=== PATIENT | female | born 1960 | race Asian ===

== ENCOUNTER 2017-11-06 06:10 | Day surgery (SDC) | payer OTHER ==
[2017-11-06] MEDS ORDERED: LACTATED RINGERS 500 ML IV ONE (06:34)
[2017-11-06] MEDS ORDERED: PHENYLEPHRINE 2.5% OPHTH 2 ML DROPS ONE (06:40)
[2017-11-06] MEDS ORDERED: KETOROLAC 0.45% OPHTH DROPS ONE (06:40)
[2017-11-06] MEDS ORDERED: CYCLOPENTOLATE 1% OPHTH DROPS 2 ML ONE (06:40)
[2017-11-06] MEDS ORDERED: PROPARACAINE 0.5% OPHTH DROPS 15 ML ONE ×2 (06:40→07:22)
[2017-11-06] MEDS ORDERED: TIMOLOL 0.5% OPHTH DROPS ONE ×3 (07:21→07:37)
[2017-11-06] MEDS ORDERED: BRIMONIDINE 0.2% OPHTH DROPS 5 ML ONE ×3 (07:21→07:37)
[2017-11-06] MEDS ORDERED: BSS/LIDOCAINE/EPINEPHRINE 1 ML SYRINGE ONE (07:22)
[2017-11-06] MEDS ORDERED: EPINEPHrine 1 MG/ML AMP ONE (07:27)
[2017-11-06] MEDS ORDERED: VANCOMYCIN 1 GM VIAL ONE (07:36)
[2017-11-06] MEDS ORDERED: MIDAZOLAM 2 MG/2 ML VIAL IVP ONE (07:41)
[2017-11-06] MEDS ORDERED: EPINEPHrine 1 MG/ML AMP IVP ONE (07:43)
[2017-11-06] MEDS ORDERED: BRIMONIDINE 0.2% OPHTH DROPS 5 ML OPTH ONE (07:43)
[2017-11-06] MEDS ORDERED: TRIAMCIN/MOXIFLOX/VANCO 1 ML VIAL IO ONE ×2 (07:44)
[2017-11-06] MEDS ORDERED: TIMOLOL 0.5% OPHTH DROPS OPTH ONE (07:44)
[2017-11-06] MEDS ORDERED: CHONDR SULF/HYALURONATE SYRINGE IO ONE (07:44)
[2017-11-06] MEDS ORDERED: BSS/LIDOCAINE/EPINEPHRINE 1 ML SYRINGE IO ONE (07:44)
[2017-11-06] MEDS ORDERED: PROPARACAINE 0.5% OPHTH DROPS 15 ML LEFTEYE ONE (07:45)
[2017-11-06 08:11] VITALS: BP 133/88
--- NOTE | 2017-11-06 08:23 | OPERATIVE REPORT ---
DATE OF SERVICE: 11/06/2017 Physician: Ceasar Nelson MD PREOPERATIVE DIAGNOSIS: Visually significant cataract, left eye. This was her first cataract surgery. POSTOPERATIVE DIAGNOSIS: Visually significant cataract, left eye. This was her first cataract surgery. NAME OF PROCEDURE: Phacoemulsification with posterior chamber intraocular lens implant, left eye. SURGEON: Ceasar Nelson M.D. ANESTHESIA: Monitored anesthesia care. COMPLICATIONS: None. OPERATIVE INDICATIONS: This is a 57-year-old woman with progressive vision loss in the left eye due to 2+ nuclear sclerotic and 2+ cortical cataract. Best corrected visual acuity was 20/80 with glare to count fingers at 2 feet in the left eye. Indications for surgery for overall decrease in vision, difficulty seeing words on a computer screen, difficulty reading; difficulty driving at night because of headlights from other vehicles, and difficulty with glare and bright lights in any situation. She was consented at length concerning the risks and benefits of cataract surgery, after which she expressed a desire to proceed with surgery. OPERATIVE PROCEDURE: The patient was taken to OR #3 and placed under monitored anesthesia care. A surgical timeout was conducted confirming the correct patient, correct procedure, and correct surgical site. She was brought under the operating microscope and given topical anesthesia and prepped and draped in usual sterile fashion. The eye was entered at the 6 and 3 o'clock positions. Intracameral Shugarcaine was injected into the anterior chamber, followed by Viscoat. A capsulorrhexis flap was created with a cystotome followed by Masket forceps. The nucleus was hydrodissected and phacoemulsified. The cortex was evacuated using automated infusion and aspiration. Provisc was injected in the capsular bag, and a 23.0 diopter intraocular lens was inserted in the bag. Approximately 0.7 mL of a mixture of triamcinolone and moxifloxacin was injected subconjunctivally in the superior quadrant. An additional 0.7 mL of vancomycin was also injected subconjunctivally in the superior quadrant for infection and inflammation prophylaxis. I and A was used to evacuate the viscoelastic material. The eye was inflated to physiologic pressure using balanced salt solution and found to be watertight. The patient was taken from the operating room in good condition and given postop instructions. TD: 11/06/2017 08:09
== END 2017-11-06 06:11 | disposition home or self-care (01) ==
LOC: SDS 06:10
PROVIDERS: ATTEND Ophthalmology
PROC: 08RK3JZ Replacement of Left Lens with Synthetic Substitute, Percutaneous Approach (ICD-10-PCS; principal; 2017-11-06 07:30)
DX: H25.812 Combined forms of age-related cataract, left eye (principal); I10 Essential (primary) hypertension; E11.9 Type 2 diabetes mellitus without complications; M32.9 Systemic lupus erythematosus, unspecified; Z79.82 Long term (current) use of aspirin; Z79.84 Long term (current) use of oral hypoglycemic drugs
CPT/HCPCS: 66984; A9270; J3370; J3490; V2632

== ENCOUNTER 2018-01-22 08:30 | Day surgery (SDC) | payer OTHER ==
[~2018-01-22 08:30] MED LIST: BSS/LIDOCAINE/EPINEPHRINE 1 ML SYRINGE ONE; CYCLOPENTOLATE 1% OPHTH DROPS 2 ML ONE; EPINEPHrine 1 MG/ML AMP ONE; KETOROLAC 0.45% OPHTH DROPS ONE; PHENYLEPHRINE 2.5% OPHTH 2 ML DROPS ONE; PROPARACAINE 0.5% OPHTH DROPS 15 ML ONE; TRIAMCIN/MOXIFLOX OPHTHALMIC 0.6 ML VIAL IO ONE; VANCOMYCIN OPHTHALMI 8MG/0.8ML 8 MG/0.8 ML SYRINGE IO ONE
--- NOTE | 2018-01-22 08:48 | ANESTHESIA ---
Pre-Anesthesia VS, & Labs - Diagnosis senile combined cataract, right - Procedure Right cataract extraction with intraocular lens implant Vital Signs: Temp Pulse Resp BP Pulse Ox 36.5 C 16 153/80 H 100 01/22/18 08:39 01/22/18 08:39 01/22/18 08:39 01/22/18 08:39 Height 5 ft 4 in Weight (kg) 86.3 kg - NPO >8 hours - Is Patient ?: No - Lab Results Other Lab Results: bg 146 Home Medications and Allergies Home Medications: Ambulatory Orders Medication Instructions Recorded Confirmed Aspirin 81 mg PO DAILY 11/06/17 11/06/17 Atorvastatin [Lipitor] 10 mg PO DAILY 11/06/17 11/06/17 Lisinopril 10 mg PO DAILY 11/06/17 11/06/17 Metformin HCl 1,000 mg PO BID 11/06/17 11/06/17 Allergies/Adverse Reactions: Allergies Allergy/AdvReac Type Severity Reaction Status Date / Time atenolol AdvReac Rash Verified 11/06/17 06:44 Anes History & Medical History - Anesthetic History Anesthesia Complications: reports: No previous complications - Medical History Cardiovascular: reports: Hypertension, High cholesterol Pulmonary: reports: None Gastrointestinal: reports: None Urinary: reports: None Musculoskeletal: reports: Fibromyalgia Endocrine/Autoimmune: reports: Type 2 diabetes Skin: reports: None - Surgical History General: Colonoscopy Eyes Ears Nose Throat (EENT): Cataracts Exam General: Alert Dental: WNL Mouth Openin Fingerbreadth Mallampati classification: II Respiratory: Lungs clear Cardiovascular: Regular rate Mental/Cognitive Status: Alert/Oriented X3 Cognitive Status: Within normal limits Plan Anesthesia Type: MAC Consent for Procedure(s) Verified and Reviewed: No Code Status: Attempt Resuscitation ASA classification: 2-Mild systemic disease Is this case an emergency?: No
[2018-01-22] MEDS ORDERED: PROPARACAINE 0.5% OPHTH DROPS 15 ML RIGHTEYE ONE ×2 (08:50→09:33)
[2018-01-22] MEDS ORDERED: CYCLOPENTOLATE 1% OPHTH DROPS 2 ML RIGHTEYE ONE (08:50)
[2018-01-22] MEDS ORDERED: KETOROLAC 0.45% OPHTH DROPS RIGHTEYE ONE (08:50)
[2018-01-22] MEDS ORDERED: PHENYLEPHRINE 2.5% OPHTH 2 ML DROPS RIGHTEYE ONE (08:50)
[2018-01-22] MEDS ORDERED: LACTATED RINGERS 500 ML IV ONE (08:57)
[2018-01-22] MEDS ORDERED: EPINEPHrine 1 MG/ML AMP IVP ONE (09:32)
[2018-01-22] MEDS ORDERED: BRIMONIDINE 0.2% OPHTH DROPS 5 ML OPTH ONE (09:32)
[2018-01-22] MEDS ORDERED: BSS/LIDOCAINE/EPINEPHRINE 1 ML SYRINGE IO ONE (09:32)
[2018-01-22] MEDS ORDERED: CHONDR SULF/HYALURONATE SYRINGE IO ONE (09:32)
[2018-01-22] MEDS ORDERED: TIMOLOL 0.5% OPHTH DROPS OPTH ONE (09:32)
[2018-01-22] MEDS ORDERED: TRIAMCIN/MOXIFLOX/VANCO 1 ML VIAL IO ONE (09:33)
[2018-01-22] MEDS ORDERED: MIDAZOLAM 2 MG/2 ML VIAL IVP ONE (09:33)
[2018-01-22 09:56] VITALS: BP 134/68
--- NOTE | 2018-01-22 10:22 | OPERATIVE REPORT ---
DATE OF SERVICE: 01/22/2018 Physician: Ceasar Nelson MD PREOPERATIVE DIAGNOSIS: Visually significant cataract, right eye. Cataract surgery was performed on the left eye on 11/06/2017. POSTOPERATIVE DIAGNOSIS: Visually significant cataract, right eye. Cataract surgery was performed on the left eye on 11/06/2017. PROCEDURE: Phacoemulsification with posterior chamber intraocular lens implant , right eye. SURGEON: Ceasar Nelson MD ANESTHESIA: Monitored anesthesia care. COMPLICATIONS: None. OPERATIVE INDICATIONS: This is a 57-year-old woman with progressive vision loss in the right eye due to 2+ nuclear sclerotic and 2+ cortical cataract. Best corrected visual acuity was 20/25, with glare to count fingers at 4 feet in the right eye. Indications for surgery were difficulty seeing words on a computer screen, difficulty reading; difficulty seeing words, closed caption or game scores on TV and difficulty driving at night because of headlights from other vehicles and /or street lights. She was consented at length concerning risks and benefits of cataract surgery, after which she expresses a desire to proceed with surgery. OPERATIVE PROCEDURE: The patient was taken to OR #3 and placed under monitored anesthesia care. A surgical timeout was conducted confirming correct patient, correct procedure, and correct surgical site. She was given topical anesthesia , and then prepped and draped in the usual sterile fashion. The eye was entered at the 12 and 9 o'clock positions. Intracameral Shugarcaine was injected into the anterior chamber, followed by Viscoat. A continuous-tear curvilinear capsulorrhexis was performed. Nucleus was hydrodissected and phacoemulsified. Cortex was evacuated using automated infusion and aspiration. Provisc was injected in the capsular bag, and a 23.0 diopter intraocular lens was inserted in the bag. Approximately 0.8 mL of a mixture of triamcinolone, moxifloxacin, and vancomycin was injected subconjunctivally in the superior quadrant for infection and inflammation prophylaxis. I and A was used to evacuate the viscoelastic materials. The eye was inflated to physiologic pressure using balanced salt solution, and found to be watertight. The patient was taken from the operating room in good condition, and given postop instructions. TD: 01/22/2018 09:56 [facility]
== END 2018-01-22 08:31 | disposition home or self-care (01) ==
LOC: SDS 08:30
PROVIDERS: ATTEND Ophthalmology
PROC: 08RJ3JZ Replacement of Right Lens with Synthetic Substitute, Percutaneous Approach (ICD-10-PCS; principal; 2018-01-22 09:30)
DX: H25.811 Combined forms of age-related cataract, right eye (principal); I10 Essential (primary) hypertension; E11.9 Type 2 diabetes mellitus without complications
CPT/HCPCS: 66984; A9270; J3490; V2632

== ENCOUNTER 2022-11-12 05:24 | Outpatient (CLI) | payer OTHER | END 2022-11-12 23:59 | disposition short-term general hospital (02) | LOC: EMS 05:24 | DX: R53.1 Weakness (principal); R07.9 Chest pain, unspecified; I95.9 Hypotension, unspecified; I48.91 Unspecified atrial fibrillation | CPT/HCPCS: A0425; A0427 ==

== ENCOUNTER 2024-01-02 10:59 | Outpatient (CLI) | payer MEDICARE, OTHER ==
--- NOTE | 2024-01-02 14:58 | XRAY Report ---
PROCEDURE: Chest 2V INDICATIONS: ACUTE COUGH TECHNIQUE: 2 views of the chest were acquired. COMPARISON: None. FINDINGS: Surgical changes and devices: None. Lungs and pleura: No pleural effusions or pneumothorax. Lungs are clear. Mediastinum: The cardiac silhouette appears enlarged. Marked tortuosity of the aortic aorta is noted . Bones and chest wall: No suspicious bony lesions. Overlying soft tissues appear unremarkable. IMPRESSION: Enlarged cardiac silhouette and markedly tortuous thoracic aorta. Clear lungs Reviewed by: Benny Parra MD on 01/02/2024 2:57 PM PDT Approved by: Benny Parra MD on 01/02/2024 2:57 PM PDT Station ID: [id number]
== END 2024-01-02 11:00 | disposition home or self-care (01) ==
LOC: DI.N 10:59
PROVIDERS: ATTEND Physician Assistant Medical
DX: R05.1 Acute cough (principal); Q25.46 Tortuous aortic arch; R41.82 Altered mental status, unspecified
CPT/HCPCS: 36415; 80053; 85025

== ENCOUNTER 2024-01-02 13:09 | Outpatient (CLI) | payer MEDICARE, OTHER ==
[2024-01-02 17:53] LABS: BASOPHILS # (AUTO) 0.1 10^3/uL (0.0-0.1); BASOPHILS % (AUTO) 1.6 %; EOSINOPHILS % (AUTO) 0.2 %; HGB - HEMOGLOBIN 10.7 g/dL (12.0-16.0); LYMPHOCYTES # (AUTO) 1.9 10^3/uL (1.5-3.5); LYMPHOCYTES % (AUTO) 33.6 %; MEAN CORPUSCULAR HEMOGLOBIN 28.1 pg (27.0-31.0); MEAN CORPUSCULAR HGB CONC 31.5 g/dL (32.0-36.0); MEAN CORPUSCULAR VOLUME 89.2 fL (81.0-99.0); MEAN PLATELET VOLUME 11.8 fL (7.9-10.8); MONOCYTES # (AUTO) 1.2 10^3/uL (0.0-1.0); MONOCYTES % (AUTO) 21.4 %; NEUTROPHILS # (AUTO) 2.4 10^3/uL (1.5-6.6); NEUTROPHILS % (AUTO) 41.8 %; PLT - PLATELET COUNT 111 10^3/uL (130-450); RED BLOOD COUNT 3.81 10^6/uL (4.20-5.40); RED CELL DISTRIBUTION WIDTH 14.3 % (12.0-15.0); WHITE BLOOD COUNT 5.7 x10^3/uL (4.8-10.8)
[2024-01-02 19:22] LABS: ALBUMIN 3.1 g/dL (3.2-5.5); ALBUMIN/GLOBULIN RATIO 0.7 (1.0-2.2); BILIRUBIN,TOTAL 1.7 mg/dL (0.2-1.0); CREATININE 0.9 mg/dL (0.6-1.3); POTASSIUM 4.1 mmol/L (3.5-4.5); TOTAL PROTEIN 7.4 g/dL (6.4-8.9)
== END 2024-01-02 13:10 | disposition home or self-care (01) ==
LOC: LAB.N 13:09
PROVIDERS: ATTEND Physician Assistant Medical
DX: R41.82 Altered mental status, unspecified (principal)
CPT/HCPCS: 36415; 80053; 85025

== ENCOUNTER 2024-01-14 08:00 | Outpatient (CLI) | payer MEDICARE, OTHER ==
[2024-01-14 20:34] LABS: FECAL OCCULT BLOOD (FIT) NEGATIVE (NEGATIVE)
== END 2024-01-14 23:59 | disposition home or self-care (01) ==
LOC: LAB.N 08:00
PROVIDERS: ATTEND Physician Assistant
DX: Z12.11 Encounter for screening for malignant neoplasm of colon (principal)
CPT/HCPCS: 82274

== ENCOUNTER 2024-02-02 07:45 | Outpatient (CLI) | payer MEDICARE, OTHER ==
[2024-02-02 13:05] LABS: BILIRUBIN,URINE NEGATIVE (NEGATIVE); GLUCOSE, URINE (UA) NEGATIVE (NEGATIVE); KETONES,URINE (UA) 15 mg/dL (NEGATIVE); LEUKOCYTE ESTERASE, URINE NEGATIVE (NEGATIVE); NITRITE,URINE NEGATIVE (NEGATIVE); OCCULT BLOOD,URINE NEGATIVE (NEGATIVE); PROTEIN,URINE NEGATIVE (NEGATIVE); UROBILINOGEN,URINE 0.2 (NORMAL) E.U./dL (NORMAL)
[2024-02-02 13:11] LABS: CLARITY,URINE CLEAR (CLEAR)
[2024-02-02 14:10] LABS: ALBUMIN 2.9 g/dL (3.2-5.5); ALBUMIN/GLOBULIN RATIO 0.6 (1.0-2.2); ALKALINE PHOSPHATASE 70 IU/L (42-121); ALT ALANINE AMINOTRANSFERASE 25 IU/L (10-60); AST ASPARTATE AMINOTRANSFERASE 42 IU/L (10-42); BUN - BLOOD UREA NITROGEN 18 mg/dL (6-20); CARBON DIOXIDE - CO2 22 mmol/L (21-32); CHLORIDE 109 mmol/L (101-111); CREATININE 1.4 mg/dL (0.6-1.3); CRP - C-REACTIVE PROTEIN < 0.5 mg/dL (<0.5); GFR - MDRD 38 (>89); GLUCOSE 107 mg/dL (74-104); POTASSIUM 4.4 mmol/L (3.5-4.5); SODIUM 137 mmol/L (135-145); TOTAL PROTEIN 7.4 g/dL (6.4-8.9)
[2024-02-02 14:15] LABS: CHOL/HDL RATIO 3.1 (<4.4); CHOLESTEROL 162 mg/dL; HDL CHOLESTEROL 53 mg/dL; LDL CHOLESTEROL,CALCULATED 97 mg/dL; LDL/HDL RATIO 1.8 (<4.4); TRIGLYCERIDES 62 mg/dL; VLDL CHOLESTEROL 12 mg/dL
[2024-02-02 14:35] LABS: BASOPHILS # (AUTO) 0.1 10^3/uL (0.0-0.1); BASOPHILS % (AUTO) 1.1 %; EOSINOPHILS # (AUTO) 0.6 10^3/uL (0.0-0.7); EOSINOPHILS % (AUTO) 11.2 %; HCT - HEMATOCRIT 31.8 % (37.0-47.0); HGB - HEMOGLOBIN 10.4 g/dL (12.0-16.0); LYMPHOCYTES # (AUTO) 1.6 10^3/uL (1.5-3.5); LYMPHOCYTES % (AUTO) 28.6 %; MEAN CORPUSCULAR HEMOGLOBIN 28.3 pg (27.0-31.0); MEAN CORPUSCULAR HGB CONC 32.7 g/dL (32.0-36.0); MEAN CORPUSCULAR VOLUME 86.6 fL (81.0-99.0); MEAN PLATELET VOLUME 11.8 fL (7.9-10.8); MONOCYTES # (AUTO) 1.1 10^3/uL (0.0-1.0); MONOCYTES % (AUTO) 20.5 %; NEUTROPHILS # (AUTO) 2.1 10^3/uL (1.5-6.6); NEUTROPHILS % (AUTO) 38.1 %; PLT - PLATELET COUNT 148 10^3/uL (130-450); RED BLOOD COUNT 3.67 10^6/uL (4.20-5.40); RED CELL DISTRIBUTION WIDTH 15.2 % (12.0-15.0); WHITE BLOOD COUNT 5.6 x10^3/uL (4.8-10.8)
[2024-02-02 14:44] LABS: WBC,URINE 0-3 /HPF (0-5)
[2024-02-02 14:45] LABS: BACTERIA,URINE Few /HPF (None Seen); RBC,URINE 0-5 /HPF (0-5); SQUAMOUS EPITHELIAL CELL,UR MOD Squamous (<= Few)
[2024-02-02 14:46] LABS: THYROID STIMULATING HORMONE 12.98 uIU/mL (0.34-5.60)
[2024-02-02 14:54] LABS: FERRITIN 104.6 ng/mL (11.0-306.8)
[2024-02-02 22:40] LABS: ESTIMATED AVERAGE GLUCOSE 100 mg/dL (70-100); HEMOGLOBIN A1c% 5.1 % (4.27-6.07)
[2024-02-03 04:09] LABS: COMPLEMENT C3 80 mg/dL (82-167); COMPLEMENT C4 9 mg/dL (12-38)
== END 2024-02-02 07:46 | disposition home or self-care (01) ==
LOC: LAB.N 07:45
PROVIDERS: ATTEND Physician Assistant
DX: R73.01 Impaired fasting glucose (principal); I50.9 Heart failure, unspecified; D64.9 Anemia, unspecified; R41.82 Altered mental status, unspecified; M25.50 Pain in unspecified joint; R76.8 Other specified abnormal immunological findings in serum; K74.69 Other cirrhosis of liver; R18.8 Other ascites
CPT/HCPCS: 36415; 80053; 80061; 81001; 82607; 82728; 82746; 83036; 83721; 84439; 84443; 85025; 85651; 86038; 86140; 86160

== ENCOUNTER 2024-02-22 00:58 | Outpatient (CLI) | payer MEDICARE, OTHER | END 2024-02-22 23:59 | disposition critical access hospital (66) | LOC: EMS 00:58 | DX: R41.82 Altered mental status, unspecified (principal); S09.93XA Unspecified injury of face, initial encounter; W19.XXXA Unspecified fall, initial encounter; Y92.002 Bathroom of unspecified non-institutional (private) residence as the place of occurrence of the external cause | CPT/HCPCS: A0425; A0429 ==

== ENCOUNTER 2024-02-22 01:13 | Emergency (ER) | payer MEDICARE, OTHER ==
--- NOTE | 2024-02-22 01:35 | ED Physician Documentation ---
PD HPI ALTERED MENTAL STATUS - Stated complaint Stated Complaint: FALL/AMS - Chief complaint Chief Complaint: Neuro - History obtained from History obtained from: Family, EMS - Additional information Additional information: PLACIDOA. HPI from EMS and patient's niece. Patient is obtunded and thus cannot contribute to HPI/ROS. Patient's niece says that the patient's baseline mental status is AAO x 3. She says that the patient and other family members just returned from a trip to [place] earlier today and that since earlier this evening, patient has been gradually exhibiting AMS manifest as slow to answer, seeming confused. She also appeared to have unsteady gait this evening. Tonight, patient fell at home. Niece did not witness the fall but immediately checked on patient and found her on the bathroom floor minimally responsive. There was no seizure-like activity noted. 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 She was released the following day after receiving lactulose and returned to baseline mental status. Review of Systems Unable to obtain: Unresponsive PD PAST MEDICAL HISTORY - Past Medical History Cardiovascular: Hypertension, High cholesterol Respiratory: None Endocrine/Autoimmune: Type 2 diabetes GI: None : None HEENT: None Psych: None Musculoskeletal: Fibromyalgia Derm: None - Past Surgical History General: Colonoscopy HEENT: Cataracts - Present Medications Home Medications: Ambulatory Orders Medication Instructions Recorded Confirmed Aspirin 81 mg PO DAILY 11/06/17 02/22/24 Furosemide [Lasix] 20 mg PO DAILY 02/22/24 02/22/24 Lactulose 20 gm PO BID 02/22/24 02/22/24 Losartan Potassium 25 mg PO DAILY 02/22/24 02/22/24 Pantoprazole [Protonix] 40 mg PO BID 02/22/24 02/22/24 Potassium Chloride 20 meq PO BID 02/22/24 02/22/24 Spironolactone [Aldactone] 25 mg PO DAILY 02/22/24 02/22/24 dilTIAZem HCL [Diltiazem 12Hr ER] 120 mg PO DAILY 02/22/24 02/22/24 - Allergies Allergies/Adverse Reactions: Allergies Allergy/AdvReac Type Severity Reaction Status Date / Time atenolol AdvReac Rash Verified 02/22/24 01:28 - Social History Does the pt smoke?: No Smoking Status: Never smoker Does the pt drink ETOH?: No Does the pt have substance abuse?: No PD ED PE NORMAL - Vitals Vital signs reviewed: Yes - General General: Other (obese female with sonorous respirations, nonverbal and not following commands. ) - HEENT HEENT: Atraumatic, PERRL - Cardiac Cardiac: RRR, No murmur - Abdomen Abdomen: Soft, Non tender, Non distended PD ED PE EXPANDED - Respiratory Respiratory: Wheezing (trace end-expiratory wheezing), Decreased breath sounds - Extremities Extremities: Pedal edema bilateral, Other (anasarca) Results - Vitals Vitals: Vital Signs - 24 hr 02/22/24 02/22/24 02/22/24 01:15 02:06 02:13 Temperature 36.6 C Heart Rate 86 92 83 Respiratory 21 20 16 Rate Blood Pressure 134/74 H 109/89 H O2 Saturation 100 92 02/22/24 02/22/24 02/22/24 02:30 03:00 03:30 Temperature Heart Rate 84 84 84 Respiratory 18 19 14 Rate Blood Pressure 138/72 H 126/62 128/59 L O2 Saturation 99 97 97 02/22/24 02/22/24 02/22/24 04:00 04:30 05:00 Temperature Heart Rate 84 85 84 Respiratory 17 20 18 Rate Blood Pressure 118/60 123/55 L 125/54 L O2 Saturation 97 97 97 02/22/24 02/22/24 02/22/24 05:30 06:00 06:30 Temperature Heart Rate 84 87 82 Respiratory 17 19 17 Rate Blood Pressure 116/57 L 109/70 117/56 L O2 Saturation 97 98 99 02/22/24 02/22/24 02/22/24 07:00 07:30 08:00 Temperature 37 C Heart Rate 91 89 87 Respiratory 21 18 17 Rate Blood Pressure 146/63 H 136/65 H 134/68 H O2 Saturation 97 99 100 02/22/24 08:30 Temperature Heart Rate 78 Respiratory 16 Rate Blood Pressure 119/81 H O2 Saturation 100 Oxygen O2 Source Room air - Labs Labs: Microbiology 02/22/24 08:05 Occult Blood - Final Stool Laboratory Tests 02/22/24 02/22/24 02/22/24 01:15 01:40 01:40 WBC 5.8 RBC 3.42 L Hgb 9.6 L Hct 29.9 L MCV 87.4 MCH 28.1 MCHC 32.1 RDW 15.8 H Plt Count 115 L MPV 11.9 H Neut # (Auto) 2.5 Lymph # (Auto) 1.5 [place] # (Auto) 1.2 H Eos # (Auto) 0.5 Baso # (Auto) 0.1 Absolute Nucleated RBC 0.02 Nucleated RBC % 0.3 PT 14.1 H INR 1.3 H APTT 35.9 H Sodium Potassium Chloride Carbon Dioxide Anion Gap BUN Creatinine Estimated GFR (MDRD) Glucose Lactic Acid Calcium Magnesium Total Bilirubin AST ALT Alkaline Phosphatase Ammonia Troponin I High Sens B-Natriuretic Peptide Total Protein Albumin Globulin Albumin/Globulin Ratio Lipase Urine Color YELLOW Urine Clarity CLEAR Urine pH 6.0 Ur Specific [place] >=1.030 H Urine Protein TRACE Urine Glucose (UA) NEGATIVE Urine Ketones NEGATIVE Urine Occult Blood NEGATIVE Urine Nitrite NEGATIVE Urine Bilirubin NEGATIVE Urine Urobilinogen 1 (NORMAL) Ur Leukocyte Esterase NEGATIVE Ur Microscopic Review NOT INDICATED Urine Culture Comments NOT INDICATED Ethyl Alcohol 02/22/24 02/22/24 02/22/24 01:40 01:40 01:40 WBC RBC Hgb Hct MCV MCH MCHC RDW Plt Count MPV Neut # (Auto) Lymph # (Auto) [place] # (Auto) Eos # (Auto) Baso # (Auto) Absolute Nucleated RBC Nucleated RBC % PT INR APTT Sodium 137 Potassium 5.3 H Chloride 110 Carbon Dioxide 20 L Anion Gap 7.0 BUN 26 H Creatinine 1.9 H Estimated GFR (MDRD) 27 L Glucose 129 H Lactic Acid Calcium 8.9 Magnesium Total Bilirubin 2.1 H AST 35 ALT 23 Alkaline Phosphatase 74 Ammonia Troponin I High Sens 16.9 H* B-Natriuretic Peptide 348 H Total Protein 7.2 Albumin 3.0 L Globulin 4.2 Albumin/Globulin Ratio 0.7 L Lipase 107 H Urine Color Urine Clarity Urine pH Ur Specific [place] Urine Protein Urine Glucose (UA) Urine Ketones Urine Occult Blood Urine Nitrite Urine Bilirubin Urine Urobilinogen Ur Leukocyte Esterase Ur Microscopic Review Urine Culture Comments Ethyl Alcohol < 10.0 02/22/24 02/22/24 02/22/24 01:55 01:55 07:59 WBC RBC Hgb Hct MCV MCH MCHC RDW Plt Count MPV Neut # (Auto) Lymph # (Auto) [place] # (Auto) Eos # (Auto) Baso # (Auto) Absolute Nucleated RBC Nucleated RBC % PT INR APTT Sodium 136 Potassium 5.3 H Chloride 110 Carbon Dioxide 18 L Anion Gap 8.0 BUN 26 H Creatinine 1.9 H Estimated GFR (MDRD) 27 L Glucose 120 H Lactic Acid 1.7 Calcium 8.9 Magnesium 2.0 Total Bilirubin 2.3 H AST 37 ALT 23 Alkaline Phosphatase 69 Ammonia 259.2 H* Troponin I High Sens B-Natriuretic Peptide Total Protein 7.1 Albumin 3.0 L Globulin 4.1 Albumin/Globulin Ratio 0.7 L Lipase 101 H Urine Color Urine Clarity Urine pH Ur Specific [place] Urine Protein Urine Glucose (UA) Urine Ketones Urine Occult Blood Urine Nitrite Urine Bilirubin Urine Urobilinogen Ur Leukocyte Esterase Ur Microscopic Review Urine Culture Comments Ethyl Alcohol 02/22/24 02/22/24 07:59 07:59 WBC RBC Hgb 9.6 L Hct 28.5 L MCV MCH MCHC RDW Plt Count MPV Neut # (Auto) Lymph # (Auto) [place] # (Auto) Eos # (Auto) Baso # (Auto) Absolute Nucleated RBC Nucleated RBC % PT INR APTT Sodium Potassium Chloride Carbon Dioxide Anion Gap BUN Creatinine Estimated GFR (MDRD) Glucose Lactic Acid Calcium Magnesium Total Bilirubin AST ALT Alkaline Phosphatase Ammonia 153.5 H* Troponin I High Sens B-Natriuretic Peptide Total Protein Albumin Globulin Albumin/Globulin Ratio Lipase Urine Color Urine Clarity Urine pH Ur Specific [place] Urine Protein Urine Glucose (UA) Urine Ketones Urine Occult Blood Urine Nitrite Urine Bilirubin Urine Urobilinogen Ur Leukocyte Esterase Ur Microscopic Review Urine Culture Comments Ethyl Alcohol - Rads (name of study) CTH Relevant Findings:: Prelim report reviewed, See rad report PD Medical Decision Making - ED course Complexity details: reviewed old records, reviewed results, re-evaluated patient, considered differential, d/w family ED course: Records from patient's inpatient stay at [facility] were requested, faxed to [facility] ED and reviewed by me. These notes indicate patient was kept overnight after extensive workup including CTA of the head and neck As well as CT of the chest, abdomen and pelvis. Within the discharge summary is included "CT imaging did not show a splenorenal shunt, but given her encephalopathy was not refractory this can be discussed with her GI provider in the outpatient setting. Her home diuretics were cut in half at discharge, and 20 mg of lactulose was prescribed twice daily, though the patient was instructed to titrate dosing to 2-4 bowel movements per day." Through the Epic record system, I was also able to find notes from the patient's nursing care partner (Dr. Lucsa out of [place]). Included in these notes are note of "large varices and moderate portal hypertensive gastropathy. Stomach biopsy shows mild chronic gastritis, no H. pylori." These notes also include "the leading etiology of cirrhosis is MASH, as her serological workup did not reveal any underlying etiology and there is no alcohol history. Her main issue at this point is fluid overload." I discussed this case with Dr. Calvo (GI covering for Dr. Lucas). He recommends lactulose enema. He agrees patient would be appropriate for transfer to higher level of care. Unfortunately, no beds available at [facility]. [facility] may have beds but will not know until later this morning. The lactulose enemas ordered and being given as my shift is coming to an end, and thus care of this patient is turned over to the oncoming ED physician (Dr. Guzman). Departure - Departure Forms: PCP List
[2024-02-22 01:53] LABS: BASOPHILS # (AUTO) 0.1 10^3/uL (0.0-0.1); BASOPHILS % (AUTO) 0.9 %; EOSINOPHILS # (AUTO) 0.5 10^3/uL (0.0-0.7); EOSINOPHILS % (AUTO) 8.3 %; HCT - HEMATOCRIT 29.9 % (37.0-47.0); HGB - HEMOGLOBIN 9.6 g/dL (12.0-16.0); LYMPHOCYTES # (AUTO) 1.5 10^3/uL (1.5-3.5); LYMPHOCYTES % (AUTO) 26.3 %; MEAN CORPUSCULAR HEMOGLOBIN 28.1 pg (27.0-31.0); MEAN CORPUSCULAR HGB CONC 32.1 g/dL (32.0-36.0); MEAN CORPUSCULAR VOLUME 87.4 fL (81.0-99.0); MEAN PLATELET VOLUME 11.9 fL (7.9-10.8); MONOCYTES # (AUTO) 1.2 10^3/uL (0.0-1.0); MONOCYTES % (AUTO) 20.1 %; NEUTROPHILS # (AUTO) 2.5 10^3/uL (1.5-6.6); NEUTROPHILS % (AUTO) 43.5 %; NRBC ABSOLUTE COUNT (AUTO) 0.02 x10^3/uL; NUCLEATED RED BLOOD CELLS AUTO 0.3 /100WBC; PLT - PLATELET COUNT 115 10^3/uL (130-450); RED BLOOD COUNT 3.42 10^6/uL (4.20-5.40); RED CELL DISTRIBUTION WIDTH 15.8 % (12.0-15.0); WHITE BLOOD COUNT 5.8 x10^3/uL (4.8-10.8)
[2024-02-22] MEDS: IPRATROPIUM/ALBUTEROL 3 ML NEB INH STA (02:08)
[2024-02-22 02:20] LABS: ALBUMIN/GLOBULIN RATIO 0.7 (1.0-2.2); ALKALINE PHOSPHATASE 74 IU/L (42-121); ALT ALANINE AMINOTRANSFERASE 23 IU/L (10-60); AST ASPARTATE AMINOTRANSFERASE 35 IU/L (10-42); BILIRUBIN,TOTAL 2.1 mg/dL (0.2-1.0); BUN - BLOOD UREA NITROGEN 26 mg/dL (6-20); CALCIUM 8.9 mg/dL (8.5-10.3); CARBON DIOXIDE - CO2 20 mmol/L (21-32); CHLORIDE 110 mmol/L (101-111); CREATININE 1.9 mg/dL (0.6-1.3); ETOH - ETHANOL < 10.0 mg/dL; GFR - MDRD 27 (>89); GLUCOSE 129 mg/dL (74-104); LIPASE 107 U/L (11-82); PARTIAL THROMBOPLASTIN TIME 35.9 secs (24.9-33.3); POTASSIUM 5.3 mmol/L (3.5-4.5); SODIUM 137 mmol/L (135-145); TOTAL PROTEIN 7.2 g/dL (6.4-8.9)
[2024-02-22 02:25] LABS: BILIRUBIN,URINE NEGATIVE (NEGATIVE); GLUCOSE, URINE (UA) NEGATIVE (NEGATIVE); KETONES,URINE (UA) NEGATIVE (NEGATIVE); LEUKOCYTE ESTERASE, URINE NEGATIVE (NEGATIVE); NITRITE,URINE NEGATIVE (NEGATIVE); OCCULT BLOOD,URINE NEGATIVE (NEGATIVE); PROTEIN,URINE TRACE mg/dL (NEGATIVE); UROBILINOGEN,URINE 1 (NORMAL) E.U./dL (NORMAL)
[2024-02-22 02:27] LABS: CLARITY,URINE CLEAR (CLEAR)
[2024-02-22 02:27] LABS: INR 1.3 (0.8-1.2); PT - PROTHROMBIN TIME 14.1 secs (9.9-12.6)
[2024-02-22] MEDS ORDERED: LACTULOSE 10 GM /15 ML UDC ONE ×2 (06:15→06:19)
[2024-02-22] MEDS: LACTULOSE 10 GM /15 ML UDC PR STA ×2 (06:33→12:40)
[2024-02-22] MEDS: SODIUM CHLORIDE 0.9% 1,000 ML IV STA ×2 (07:45→11:40)
[2024-02-22 08:03] LABS: HCT - HEMATOCRIT 28.5 % (37.0-47.0); HGB - HEMOGLOBIN 9.6 g/dL (12.0-16.0)
[2024-02-22 08:21] LABS: ALBUMIN/GLOBULIN RATIO 0.7 (1.0-2.2); BILIRUBIN,TOTAL 2.3 mg/dL (0.2-1.0); CALCIUM 8.9 mg/dL (8.5-10.3); CREATININE 1.9 mg/dL (0.6-1.3); POTASSIUM 5.3 mmol/L (3.5-4.5); TOTAL PROTEIN 7.1 g/dL (6.4-8.9)
--- NOTE | 2024-02-22 09:04 | XRAY Report ---
PROCEDURE: Chest 1V INDICATIONS: chest pain TECHNIQUE: One view of the chest was acquired. COMPARISON: 01/02/2024. FINDINGS: Surgical changes and devices: None. Lungs and pleura: The lungs are hypoinflated and pulmonary vasculature is prominent. There is no ple ural effusion, pneumothorax, or focal consolidation. Mediastinum: Mediastinal contours appear normal. Heart size is enlarged. Bones and chest wall: No suspicious bony lesions. Overlying soft tissues appear unremarkable. IMPRESSION: 1. No displaced rib fracture or underlying pulmonary injury. 2. Prominent pulmonary vasculature which may be secondary to technique/hypoinflation but can be seen in setting of early cardiogenic pulmonary edema. Reviewed by: Aziza Martinez MD on 02/22/2024 8:03 AM [facility] Approved by: Aziza Martinez MD on 02/22/2024 8:03 AM [facility] Station ID: [id number]
--- NOTE | 2024-02-22 09:08 | CT Report ---
PROCEDURE: Head WO INDICATIONS: fall, AMS TECHNIQUE: Noncontrast 4.5 mm thick angled axial sections acquired from the foramen magnum to the vertex. For r adiation dose reduction, the following was used: automated exposure control, adjustment of mA and/or kV according to patient size. COMPARISON: None. FINDINGS: Image quality: Diagnostic but suboptimal secondary to motion artifact.. CSF spaces: Basal cisterns are patent. No extra-axial fluid collections. Ventricles are normal in size and shape. Brain: No midline shift. No intracranial masses or hemorrhage. Prado-white matter interface is norm al. Patchy subcortical and periventricular white matter hypoattenuation is likely sequela of prior m icroangiopathy. Bilateral basal ganglia calcification is present. Skull and face: Calvarium and visualized facial bones are intact, without suspicious lesions. Sinuses: Visualized sinuses and mastoids are clear. IMPRESSION: No acute intracranial pathology. Reviewed by: Aziza Martinez MD on 02/22/2024 8:06 AM [facility] Approved by: Aziza Martinez MD on 02/22/2024 8:06 AM [facility] Station ID: [id number]
[2024-02-22 09:22] LABS: B. PARAPERTUSSIS- RESP PCR PAN NOT DETECTED; B. PERTUSSIS- RESP PCR PANEL NOT DETECTED; C. PNEUMONIAE- RESP PCR PANEL NOT DETECTED; CORONAVIRUS 229E-RESP PCR NOT DETECTED; CORONAVIRUS HKU1-RESP PCR NOT DETECTED; CORONAVIRUS NL63-RESP PCR NOT DETECTED; CORONAVIRUS OC43-RESP PCR NOT DETECTED; HUMAN METAPNEUMOVIRUS NOT DETECTED; INFLUENZA A- RESP PCR PANEL NOT DETECTED; INFLUENZA B - RESP PCR PANEL NOT DETECTED; M. PNEUMONIAE- RESP PCR PANEL NOT DETECTED; PARAINFLUENZA VIRUS 1 NOT DETECTED; PARAINFLUENZA VIRUS 2 NOT DETECTED; PARAINFLUENZA VIRUS 3 NOT DETECTED; PARAINFLUENZA VIRUS 4 NOT DETECTED; RHINOVIRUS/ENTEROVIRUS NOT DETECTED; RSV- RESP PCR PANEL NOT DETECTED; SARS-CoV-2 -RESP PCR PANEL NOT DETECTED
[2024-02-22 12:36] LABS: CC,BF RBC 10000 /mm^3; CC,BF WBC 393 /mm^3; LYMPHOCYTES %,BODY FLUID 76 %; MONOCYTES %,BODY FLUID 12 %; NEUTROPHILS %, BF 2 %
[2024-02-22 12:37] LABS: BF CLARITY HAZY; BF COLOR PINK; BF SOURCE PERITONEAL; MESOTHELIAL %, BF 10 %
[2024-02-22] MEDS: LACTULOSE 10 GM/15 ML BOTTLE PR ONE (12:40)
[2024-02-22] MEDS: LACTULOSE 10 GM/15 ML BOTTLE PO ONE (12:41)
[2024-02-22] MEDS: cefTRIAXone 2 GM in SODIUM CHLORIDE 0.9% MINIBAG 100 ML IV STA (13:50)
--- NOTE | 2024-02-22 14:06 | PHARMACY PROGRESS NOTE ---
- Best Possible Medication History Admit Date and Time: Processed by: Pharmacy Medication History completed: Yes Patient Interview: Pt unable to participate Secondary Source(s): Written medication list, Insurance records (PER [employer]OX[employer] ([employer]) PROVIDED MED LIST AND [facility] RECORDS) As the person ultimately responsible for medication therapy, providers are able to order a medication from an existing home medication list in [facility] via the "Reconcile Routine" prior to Confirmation of that medication by ground support equipment assembler. Such practice is discouraged except when the physician, in their clinical judgment, deems that a medical need exists for a medication without regard to previous use.
[2024-02-22 14:45] LABS: BASOPHILS # (AUTO) 0.1 10^3/uL (0.0-0.1); BASOPHILS % (AUTO) 0.7 %; EOSINOPHILS # (AUTO) 0.1 10^3/uL (0.0-0.7); EOSINOPHILS % (AUTO) 1.3 %; HCT - HEMATOCRIT 28.4 % (37.0-47.0); HGB - HEMOGLOBIN 9.5 g/dL (12.0-16.0); LYMPHOCYTES # (AUTO) 1.2 10^3/uL (1.5-3.5); LYMPHOCYTES % (AUTO) 18.1 %; MEAN CORPUSCULAR HEMOGLOBIN 28.4 pg (27.0-31.0); MEAN CORPUSCULAR HGB CONC 33.5 g/dL (32.0-36.0); MEAN CORPUSCULAR VOLUME 84.8 fL (81.0-99.0); MEAN PLATELET VOLUME 10.2 fL (7.9-10.8); MONOCYTES # (AUTO) 1.5 10^3/uL (0.0-1.0); MONOCYTES % (AUTO) 21.6 %; NEUTROPHILS % (AUTO) 57.9 %; PLT - PLATELET COUNT 124 10^3/uL (130-450); RED BLOOD COUNT 3.35 10^6/uL (4.20-5.40); RED CELL DISTRIBUTION WIDTH 15.6 % (12.0-15.0); WHITE BLOOD COUNT 6.9 x10^3/uL (4.8-10.8)
[2024-02-22] MEDS: PANTOPRAZOLE 40 MG VIAL IVP STA (14:52)
[2024-02-22] MEDS: FUROSEMIDE 20 MG/2 ML VIAL IVP STA (14:52)
[2024-02-22 14:57] LABS: ALBUMIN 2.9 g/dL (3.2-5.5); ALBUMIN/GLOBULIN RATIO 0.7 (1.0-2.2); BILIRUBIN,TOTAL 2.4 mg/dL (0.2-1.0); CALCIUM 9.1 mg/dL (8.5-10.3); CREATININE 1.7 mg/dL (0.6-1.3)
--- NOTE | 2024-02-22 16:57 | ED Physician Documentation ---
ED Addendum - Addendum Addendum: 02/22/24 16:49 I did assume care of the patient on change of shift this morning. At the time she was recently after receiving rectal lactulose. She was still nonverbal or communicative.However she was starting to rouse a bit and roll [id number] and sit up. No eye-opening. Through the morning the patient remained stable with good vital signs and respiratory status. Head of the bed was maintained slightly elevated for good reflux precautions. She was not given anything orally. She did have the stool out after the lactulose enema. Repeat blood test showed the ammonia level to actually improved considerably from 2 4250 approximately. Repeat of the lactulose enema was done again at approximately 4 to 5 hours after the initial 1 and subsequent repeat blood test another hour or 2 later was now 82. She still is not having any eye opening spontaneously. She does moan and say ouch in response to local anesthetic that I did for paracentesis. She did reach up and hold my hand as I was doing the procedure as well. I did talk with GI/hepatology, Dr. Flores at the . They do not have any beds and after reviewing the labs and results, the feeling was her MELD score was not high enough to require imminent transfer. The suggestion was to keep doing the lactulose and see how well clinically she improves and certainly could be looking at other facilities for transfer if we need it. Suggestion was for a paracentesis to evaluate for SBP The paracentesis was done without any complications. The cell count was showing 363 white cells which is over the threshold of concern at 250 according to up-to-date. As such we would start antibiotics of recommended ceftriaxone 2 g. The patient's does describe that she had been having just a several days of increased confusion and off balance. No obvious cold or flu symptoms. No change in medicines. She had fallen and struck her left forehead last night and was still conversant at that time however. This of course does not account for the quite elevated ammonia level. Certainly could consider combination of hydration etc. SBP is of concern. Her respiratory viral panel is negative. No other signs of infection based on urine and chest x-ray and a respiratory viral panel. We will continue with the rectal lactulose every 4 hours which was a recommendation from the explosives mixer operator at . If the patient clears clinically enough, we might consider changing disposition to hospitalization here but at morning rounds talking with our hospitalist, the he felt uncomfortable admitting her here given the specialty needs for GI and hepatology etc.
--- NOTE | 2024-02-22 17:17 | ED Physician Documentation ---
Procedures - Paracentesis - Major Preparation: Ultrasound guidance, Sterile prep and drape, Local anesthesia, Other (patient not able to consent. I did discuss it with her neice in the room. Done as implied consent.) Location: [facility] Technique: Catheter over needle Fluid: Cloudy, Sent for cell count, Sent for gram stain, Sent for culture, Volume - enter cc (110) Aftercare: No complications, Patient tolerated well, Dressing applied, Other (The suctioning did not work to the Vacutainer. I was able to manually draw off some fluid by large syringe. He did have a cloudy appearance. Sent for culture Gram stain and cell count.)
[2024-02-22] MEDS ORDERED: ACETAMINOPHEN 500 MG TABLET PO PRN (17:20)
[2024-02-22] MEDS ORDERED: ONDANSETRON 4 MG/2 ML VIAL IVP PRN (17:20)
[2024-02-22 19:39] LABS: ALBUMIN 2.8 g/dL (3.2-5.5); ALBUMIN/GLOBULIN RATIO 0.7 (1.0-2.2); BILIRUBIN,TOTAL 2.5 mg/dL (0.2-1.0); CALCIUM 8.5 mg/dL (8.5-10.3); CREATININE 1.6 mg/dL (0.6-1.3); POTASSIUM 4.8 mmol/L (3.5-4.5); TOTAL PROTEIN 6.8 g/dL (6.4-8.9)
[2024-02-22] MEDS ORDERED: cefTRIAXone 1 GM VIAL ONE (20:45)
[2024-02-22] MEDS: cefTRIAXone 1 GM in SODIUM CHLORIDE 0.9% MINIBAG 100 ML IV SCH (20:48)
[2024-02-22 21:01] VITALS: O2SAT 99
[2024-02-22 21:34] VITALS: BP 116/70
[2024-02-23] MEDS ORDERED: PANTOPRAZOLE 40 MG TABLET PO SCH (07:00)
== END 2024-02-22 22:08 | disposition short-term general hospital (02) ==
LOC: EDUNIT# → EDBD → ED 01:13
DX: R41.82 Altered mental status, unspecified (principal); S09.90XA Unspecified injury of head, initial encounter; W18.39XA Other fall on same level, initial encounter; E72.20 Disorder of urea cycle metabolism, unspecified; I10 Essential (primary) hypertension; E78.00 Pure hypercholesterolemia, unspecified; K75.81 Nonalcoholic steatohepatitis (NASH); E11.9 Type 2 diabetes mellitus without complications; M79.7 Fibromyalgia; Z79.82 Long term (current) use of aspirin; Z79.899 Other long term (current) drug therapy
CPT/HCPCS: 36415; 49082; 70450; 71045; 80053; 81003; 82140; 82272; 83605; 83690; 83735; 83880; 84484; 85014; 85018; 85025; 85610; 85730; 87070; 87205; 87633; 89051; 93005; 94640; 96365; 96366; 96375; 99285; A9270; G0480; 81001; 82077; 87086

== ENCOUNTER 2024-03-04 09:27 | Outpatient (CLI) | payer MEDICARE, OTHER ==
[2024-03-04 12:25] LABS: ALBUMIN/GLOBULIN RATIO 0.8 (1.0-2.2); BILIRUBIN,TOTAL 2.4 mg/dL (0.2-1.0); CALCIUM 9.1 mg/dL (8.5-10.3); CREATININE 1.2 mg/dL (0.6-1.3); POTASSIUM 4.5 mmol/L (3.5-4.5)
[2024-03-04 12:33] LABS: THYROID STIMULATING HORMONE 23.79 uIU/mL (0.34-5.60)
== END 2024-03-04 09:28 | disposition home or self-care (01) ==
LOC: LAB.N 09:27
PROVIDERS: ATTEND Physician Assistant
DX: K76.82 Hepatic encephalopathy (principal); N17.9 Acute kidney failure, unspecified; R94.6 Abnormal results of thyroid function studies
CPT/HCPCS: 36415; 80048; 80053; 84439; 84443

== ENCOUNTER 2024-05-15 05:30 | Inpatient (IN) ==
[2024-05-15] MEDS: SODIUM CHLORIDE 0.9% 1,000 ML IV STA (05:30)
[2024-05-15] MEDS ORDERED: iohexoL-300 100 ML VIAL ONE (05:41)
--- NOTE | 2024-05-15 05:50 | ED Physician Documentation ---
History of Present Illness Stated complaint Stated Complaint: UNRESPONSIVE Chief complaint Chief Complaint: Neuro Additonal information Additional information: 63-year-old female with history of cirrhosis, hepatic cephalopathy, hypothyroidism, JACKSON presents with altered mental status, intubated, Via EMS. She was reportedly in her usual health, last seen normal at 3:30 AM, when she got up to go to the bathroom. then saw her at 4 AM confused. EMS a rrived and she was GCS 4, then intubated, the vital signs have been reassuring. Reportedly, endotracheal tube size 7, 23 at the lips. No hypoglycemia en route. She received rocuronium roughly 45 minutes prior to arrival, with etomidate, then Versed and fentanyl. Narcan was also tried without response. No clear volitional movements. Reportedly, no known trauma, fevers, shortness breath, pain, evidence of SI or overdose, or any other concerns prior to her becoming altered. Per chart view, patient was admitted to [facility] in March, diagnosed with hepatic encephalopathy and intubated. TSH was also elevated, but endocrinology felt she did not have myxedema coma. She was discharged on torsemide, spironolactone increase with plan to see gastroenterology Dr. Lucas outpatient and nephrology. Per discharge from March from [facility], patient also history of CHF, atrial fibrillation not on anticoagulation due to history of GI bleeding. She was diagnosed with hepatic encephalopathy, requiring intubation, with again note the endocrinology did not feel she had Nexium,. She also had anasarca in the setting of decompensated liver cirrhosis, receiving diuresis asix at the time. She also had hyponatremia. She had ESBL in sputum that was felt not to need treatment with ID consult per discharge note. She had fractured arterial catheter and femoral artery which may later require vascular surgery follow-up for removal. Review of Systems ROS Patient intubated; available information in HPI. Meds/Allgy Home Medications Ambulatory Orders Medication Instructions Recorded Confirmed Handicap Vianneyronnie #2 ea 04/23/24 04/23/24 diltiazem HCl 120 mg 120 mg PO QDAY #90 caps 04/23/24 05/15/24 capsule,extended release 24 hr lactulose 10 gram/15 mL oral 30 ml PO TID #946 mL 04/23/24 05/15/24 solution levothyroxine 75 mcg capsule 75 mcg PO QAM #90 caps 04/23/24 05/15/24 pantoprazole 40 mg tablet,delayed 40 mg PO BID #90 tabs 04/23/24 05/15/24 release spironolactone 100 mg tablet 100 mg PO QAM #90 tabs 04/23/24 05/15/24 torsemide 20 mg tablet (Soaanz) 20 mg PO QDAY #90 tabs 04/23/24 05/15/24 Allergies Allergies Allergy/AdvReac Type Severity Reaction Status Date / Time amlodipine Allergy Rash Verified 05/15/24 05:48 lisinopril Allergy Unknown Verified 05/15/24 05:48 atenolol AdvReac Rash Verified 05/15/24 05:48 [facility] Medical History Medical History (Updated 05/15/24 @ 06:35 by Phillip Duque MD) Rheumatoid arthritis, unspecified (11/07/23) Bilateral leg edema (11/07/23) Fasting hyperglycemia (11/07/23) Acute respiratory failure 03/2024, secondary to hepatic encephalopathy, req intubation Ascites Hyperlipidemia Atrial fibrillation dx 2022 in [facility] Heart failure with preserved ejection fraction dx 2021 in setting of anemia from acute blood loss due to gastritis Hx of upper gastrointestinal hemorrhage Anemia Esophageal varices Surgical History Surgical History (Updated 04/23/24 @ 15:00 by Roxann Hoffmann, RN, BSN) Adverse anesthesia outcome difficulty breathing after anesthesia from EGD History of colonoscopy History of esophagogastroduodenoscopy (EGD) Bilateral cataracts Hx of cholecystectomy 07/2022 Social History Social History (Updated 04/23/24 @ 15:34 by Roxann Hoffmann, RN, BSN) Smoking Status: Never smoker Do you dip or chew tobacco?: No Relationship: Caregiver ETOH Use: None Substance Use: denies use POLST Patient has POLST: No Exam Exam Const: no acute distress, non toxic appearing; intubated Eyes: PERRLA, EOMI ENT: mucous membranes moist, ETT in place, 23 at lips Neck: supple, non-tender Resp: no respiratory distress, clear to auscultation bilaterally Card: regular rate and rhythm, no murmurs Abd: non tender diffusely, no rigidity or rebound or guarding Back: no T or L spine tenderness, no CVA tenderness bilaterally Extrem: no deformities, no swelling bilateral lower extremities Neuro: ANOx4, GCS 3T, no clonus BLE Skin: no rash, warm and dry Results Vitals Vitals: Vital Signs - 24 hr 05/15/24 05:30 05/15/24 05:45 05/15/24 06:16 Temperature 36.5 C 36.5 C Temperature Source Temporal Artery Scan Temporal Artery Scan Pulse Rate 107 H 97 H 85 Respiratory Rate 17 18 Blood Pressure 142/77 H 134/68 H O2 Saturation 100 100 O2 Source Ambu bag Mechanical ventilator Fraction of Inspired Oxygen (FIO2) 40 FiO2 (%) Pain Intensity 0 0 05/15/24 06:30 05/15/24 06:30 Temperature 35.0 C L Temperature Source Core Pulse Rate 87 89 Respiratory Rate 18 Blood Pressure 134/68 H O2 Saturation 99 O2 Source Mechanical ventilator Fraction of Inspired Oxygen (FIO2) 30 FiO2 (%) 30 Pain Intensity Oxygen O2 Source Mechanical ventilator Labs Labs: Laboratory Tests 05/15/24 05:47 WBC 6.6 RBC 4.71 Hgb 13.1 Hct 40.3 MCV 85.6 MCH 27.8 MCHC 32.5 RDW 16.1 H Plt Count 156 MPV 10.3 Neut # (Auto) 4.6 Lymph # (Auto) 1.1 L [place] # (Auto) 0.7 Eos # (Auto) 0.0 Baso # (Auto) 0.1 Absolute Nucleated RBC 0.00 Nucleated RBC % 0.0 Manual Slide Review Indicated WBC Morphology NORMAL APPEARANCE Platelet Estimate NORMAL (130-450,000) Platelet Morphology NORMAL APPEARANCE RBC Morph Micro Appear NORMAL APPEARANCE PT 11.7 INR 1.1 VBG pH 7.314 VBG pCO2 48.0 VBG pO2 175.2 H VBG HCO3 23.8 VBG Total CO2 25.3 VBG O2 Saturation 99.1 H VBG Base Excess -2.7 L Sodium 134 L Potassium 4.9 H Chloride 103 Carbon Dioxide 25 Anion Gap 6.0 BUN 50 H Creatinine 1.9 H Estimated GFR (MDRD) 27 L Glucose 161 H Lactic Acid 1.8 Calcium 9.6 Total Bilirubin 1.5 H AST 31 ALT 18 Alkaline Phosphatase 77 Ammonia 222.2 H* Troponin I High Sens 13.8 Total Protein 8.3 Albumin 3.5 Globulin 4.8 H Albumin/Globulin Ratio 0.7 L TSH 0.87 Urine Color YELLOW Urine Clarity CLEAR Urine pH 6.0 Ur Specific [place] 1.020 Urine Protein NEGATIVE Urine Glucose (UA) NEGATIVE Urine Ketones NEGATIVE Urine Occult Blood NEGATIVE Urine Nitrite NEGATIVE Urine Bilirubin NEGATIVE Urine Urobilinogen 0.2 (NORMAL) Ur Leukocyte Esterase NEGATIVE Urine RBC 0-5 Urine WBC 0-3 Ur Squamous Epith Cells FEW Squamous Urine Bacteria Rare Urine Casts 0-2 Hyaline Casts Urine Culture Comments NOT INDICATED Acetaminophen 0.4 Ethyl Alcohol < 10.0 PD Medical Decision Making ED course ED course: This patient presents with abrupt confusion and low GCS, leading to intubation by EMS. Rocuronium should now have worn off, and she does not have volitional movement. In this setting, I have initiated immediate stroke workup, with consideration of hemorrhagic stroke, ischemic stroke, LVO, along with alternative such as seizure, hypoglycemia, electrolyte derangements, catatonia, among others. No clear focal trauma. This would be atypical for hepatic encephalopathy, however patient does have a very similar presentation in the last few months with this as diagnosis, with workup for myxedema coma that was considered negative per endocrinology consult. We are obtaining chest x-ray prior to transfer to CT to assess endotracheal tube, then CT head, CT head and neck, along with altered mental status workup with EKG, CBC, CMP, Tylenol and ethanol levels, UDS, VBG, TSH, lactate, blood cultures x2, ammonia, urinalysis. I am giving fluids and will closely reassess. I am holding sedatives given current exam with GCS 3T. Family reportedly on the way. RT at bedside assisting. Sears being placed. Note ETT was withdrawn by RT after CXR showed R mainstem intubation. Breath sounds equal following this. Repeat CXR ordered. Patient to CT. Radiology called at 0630 stating no acute findings on hCT. Currently, this presentation would be highly atypical for stroke, with isolated low GCS without lateralizing deficits. Given recent similar presentation, locked-in syndrome would be extremely unlikely; CTA pending however. Patient's niece arrived and clarified history. On clarification, patient actually has had some intermittent and progressive confusion over the last few days. She also fell a few days ago. In this setting, head trauma possible, thrombolytic contraindication. In addition, this is now much more suggestive of progressive metabolic encephalopathy, with causes such as hepatic encephalopathy more likely. EKG NSR without acute ischemia or immediately concerning interval prolongation on my review (QTc elevated though <500). Initial quality poor, so this was repeated. Labs: blood gas with acceptable pH and CO2. INR WNL. Chemistry with borderline hyponatremia, borderline hyperkalemia, creatinine mildly elevated from prior, BUN elevated suggestive of intravascular volume depletion, mild bilirubin elevation improved from prior, no AST or ALT or alk phos elevation. Tylenol within normal limits. Ethanol negative. Ammonia elevated >222, consistent with suspected hepatic encephalopathy; I am ordering lactulose enema, discussed with RNs who will help prepare this at this facility. CBC with no leukocytosis, anemia, or thrombocytopenia, overall reassuring. TSH within normal limits. Troponin within normal limits. Urine without clear infection. Repeat CXR with appropriate ETT placemen on my review. Imaging: I agree with radiology reads of imaging on my independent review of imaging. hCT: no acute findings per radiology beyond fluid in posterior nasal cavities and nasopharyngeal lumen, per Dr. Ness's read at 6:27:46 AM which I reviewed. CXR and CTA head/neck formal reads pending. Signing out to AM physician Dr. Guzman at 0700 with plan to follow up formal reads of CXRs, CTA head/neck, along with viral swab, UDS which are pending. Patient stable on vent, still GCS 3T, with staff arranging lactulose enema. Currently, pending remaining studies, hepatic encephalopathy does seem most likely to be driving presentation. CRITICAL CARE TIME: outside of procedures, I spent 65 minutes assessing, reassessing, resuscitating this patient, speaking with family and consultants, and interpreting studies and documentation, in the setting of intubated patient with low GCS. Discharge Plan Discharge Clinical Impression: AMS (altered mental status) Prescriptions: No Action (DME) Handicap Placard Unit See Rx Instructions .MEDSUPPLY Qty: 2 0RF Rx Instructions: Permanent Disabled Parking Permit. Cannot walk more than 200 feet without stopping to rest. lactulose 10 gram/15 mL solution 30 ml PO TID Qty: 946 12RF diltiazem HCl 120 mg capsule,extended release 24hr 120 mg PO QDAY Qty: 90 1RF Rx Instructions: Hold for SBP<100, HR <55 levothyroxine 75 mcg capsule 75 mcg PO QAM Qty: 90 1RF pantoprazole 40 mg tablet,delayed release (DR/EC) 40 mg PO BID Qty: 90 1RF spironolactone 100 mg tablet 100 mg PO QAM Qty: 90 1RF torsemide [Soaanz] 20 mg tablet 20 mg PO QDAY Qty: 90 1RF Print Language: Faroese Stand Alone Forms: PCP List
[2024-05-15 06:00] LABS: VBG BASE EXCESS -2.7 mmol/L (-2 - +2); VBG HCO3 23.8 mmol/L (23-28); VBG OXYGEN SATURATION 99.1 % (60-80); VBG PH 7.314 (7.31-7.41); VBG PO2 175.2 mmHg (25-47); VBG TOTAL CO2 25.3 mmol/L (24-29)
[2024-05-15 06:01] LABS: BASOPHILS # (AUTO) 0.1 10^3/uL (0.0-0.1); BASOPHILS % (AUTO) 0.8 %; EOSINOPHILS % (AUTO) 0.3 %; HCT - HEMATOCRIT 40.3 % (37.0-47.0); HGB - HEMOGLOBIN 13.1 g/dL (12.0-16.0); LYMPHOCYTES # (AUTO) 1.1 10^3/uL (1.5-3.5); MEAN CORPUSCULAR HEMOGLOBIN 27.8 pg (27.0-31.0); MEAN CORPUSCULAR HGB CONC 32.5 g/dL (32.0-36.0); MEAN CORPUSCULAR VOLUME 85.6 fL (81.0-99.0); MEAN PLATELET VOLUME 10.3 fL (7.9-10.8); MONOCYTES # (AUTO) 0.7 10^3/uL (0.0-1.0); MONOCYTES % (AUTO) 10.7 %; NEUTROPHILS # (AUTO) 4.6 10^3/uL (1.5-6.6); NEUTROPHILS % (AUTO) 70.8 %; PLT - PLATELET COUNT 156 10^3/uL (130-450); RED BLOOD COUNT 4.71 10^6/uL (4.20-5.40); RED CELL DISTRIBUTION WIDTH 16.1 % (12.0-15.0); WHITE BLOOD COUNT 6.6 x10^3/uL (4.8-10.8)
[2024-05-15 06:03] LABS: INR 1.1 (0.8-1.2); PT - PROTHROMBIN TIME 11.7 secs (9.9-12.6)
[2024-05-15 06:12] LABS: ACETAMINOPHEN 0.4 ug/mL; ALBUMIN 3.5 g/dL (3.2-5.5); ALBUMIN/GLOBULIN RATIO 0.7 (1.0-2.2); ALKALINE PHOSPHATASE 77 IU/L (42-121); ALT ALANINE AMINOTRANSFERASE 18 IU/L (10-60); AST ASPARTATE AMINOTRANSFERASE 31 IU/L (10-42); BILIRUBIN,TOTAL 1.5 mg/dL (0.2-1.0); BUN - BLOOD UREA NITROGEN 50 mg/dL (6-20); CALCIUM 9.6 mg/dL (8.5-10.3); CARBON DIOXIDE - CO2 25 mmol/L (21-32); CHLORIDE 103 mmol/L (101-111); CREATININE 1.9 mg/dL (0.6-1.3); ETOH - ETHANOL < 10.0 mg/dL; GFR - MDRD 27 (>89); GLUCOSE 161 mg/dL (74-104); POTASSIUM 4.9 mmol/L (3.5-4.5); SODIUM 134 mmol/L (135-145); TOTAL PROTEIN 8.3 g/dL (6.4-8.9)
[2024-05-15 06:25] LABS: THYROID STIMULATING HORMONE 0.87 uIU/mL (0.34-5.60)
[2024-05-15 06:32] LABS: BILIRUBIN,URINE NEGATIVE (NEGATIVE); GLUCOSE, URINE (UA) NEGATIVE (NEGATIVE); KETONES,URINE (UA) NEGATIVE (NEGATIVE); LEUKOCYTE ESTERASE, URINE NEGATIVE (NEGATIVE); NITRITE,URINE NEGATIVE (NEGATIVE); OCCULT BLOOD,URINE NEGATIVE (NEGATIVE); PROTEIN,URINE NEGATIVE (NEGATIVE); UROBILINOGEN,URINE 0.2 (NORMAL) E.U./dL (NORMAL)
[2024-05-15 06:37] LABS: PLATELET ESTIMATE, MANUAL NORMAL (130-450,000) (NORMAL); PLATELET MORPHOLOGY NORMAL APPEARANCE (NORMAL); RBC MORPHOLOGY (MULTIPLE) NORMAL APPEARANCE (NORMAL); SLIDE REVIEW? Indicated; WBC MORPHOLOGY (MULTIPLE) NORMAL APPEARANCE (NORMAL)
[2024-05-15 06:39] LABS: BACTERIA,URINE Rare /HPF (None Seen); CASTS, URINE 0-2 Hyaline Casts /LPF; CLARITY,URINE CLEAR (CLEAR); RBC,URINE 0-5 /HPF (0-5); SQUAMOUS EPITHELIAL CELL,UR FEW Squamous (<= Few); WBC,URINE 0-3 /HPF (0-5)
[2024-05-15] MEDS: iohexoL-300 100 ML VIAL IVP ONE (06:58)
[2024-05-15 07:42] LABS: INFLUENZA A- RESP PCR PANEL NOT DETECTED; INFLUENZA B - RESP PCR PANEL NOT DETECTED; RSV- RESP PCR PANEL NOT DETECTED; SARS-CoV-2 -RESP PCR PANEL NOT DETECTED
[2024-05-15] MEDS: LACTULOSE 10 GM /15 ML UDC PO STA (08:03)
[2024-05-15] MEDS: PROPOFOL 1000 MG/100 ML 1,000 MG/100 ML BOTTLE IV STA (08:09)
--- NOTE | 2024-05-15 08:30 | ED Physician Documentation ---
ED Addendum Addendum Addendum: CT angio did not show any obvious acute problems. Initial viral panel resulting was negative for major viruses. I did order a propofol drip in case she started to rouse. Lactulose enema was being prepared. I did talk with the hospitalist who will come see the patient for admission. We do have ICU beds. Disposition: The patient is admitted to the hospital in stable condition Diagnoses: 1. Altered mental status 2. Hepatic encephalopathy 3. JACKSON Discharge Plan Discharge Clinical Impression: AMS (altered mental status) Prescriptions: No Action (DME) Handicap Placard Unit See Rx Instructions .MEDSUPPLY Qty: 2 0RF Rx Instructions: Permanent Disabled Parking Permit. Cannot walk more than 200 feet without stopping to rest. lactulose 10 gram/15 mL solution 30 ml PO TID Qty: 946 12RF diltiazem HCl 120 mg capsule,extended release 24hr 120 mg PO QDAY Qty: 90 1RF Rx Instructions: Hold for SBP<100, HR <55 levothyroxine 75 mcg capsule 75 mcg PO QAM Qty: 90 1RF pantoprazole 40 mg tablet,delayed release (DR/EC) 40 mg PO BID Qty: 90 1RF spironolactone 100 mg tablet 100 mg PO QAM Qty: 90 1RF torsemide [Soaanz] 20 mg tablet 20 mg PO QDAY Qty: 90 1RF Print Language: Moldovan Stand Alone Forms: PCP List
[2024-05-15] MEDS: LACTULOSE 10 GM/15 ML BOTTLE PR ONE (08:55)
--- NOTE | 2024-05-15 09:25 | CT Report ---
PROCEDURE: CT Head W/O Stroke Protocol INDICATIONS: abrupt low GCS, intubated TECHNIQUE: Noncontrast 4.5 mm thick angled axial sections acquired from the foramen magnum to the vertex, with c oronal reformats. For radiation dose reduction, the following was used: automated exposure control, adjustment of mA and/or kV according to patient size. COMPARISON: 02/22/2024. Correlation is made with the accompanying imaging. FINDINGS: Image quality: Excellent. CSF spaces: Basal cisterns are patent. No extra-axial fluid collections. Ventricles are normal in size and shape. Brain: No midline shift. No intracranial hemorrhage. Prado-white matter interface is normal. An 11 mm calcified focus can be seen adjacent to the right frontal lobe anteriorly, as on series 4 image 23 . No significant change from the prior. Symmetric calcification of the basal ganglia can be seen, whi ch is considered to be within normal limits for age. Skull and face: Calvarium and visualized facial bones are intact, without suspicious lesions. Sinuses: Visualized sinuses and mastoids are clear. An endotracheal tube is seen on the scout executive image. Associated fluid can be seen within the nasopharynx. IMPRESSION: No acute interval abnormality is seen to explain the patient's presenting symptoms. If there is strong clinical concern for a stroke, please consider a dedicated brain MRI for further e valuation (assuming that there is no contraindication to MRI). Adjacent to the right frontal lobe, there is a stable likely calcified meningioma. Differential diagn osis includes osteoma, however. Intubation, with associated fluid within the nasopharynx. This study fulfills neurological imaging criteria for inclusion or exclusion of acute stroke therapie s based on available published neurological imaging guidelines. Note: No significant discrepancy from the preliminary report. Reviewed by: Shashi Hogan MD on 05/15/2024 8:23 AM [facility] Approved by: Shashi Hogan MD on 05/15/2024 8:23 AM [facility] Station ID: [id number]
--- NOTE | 2024-05-15 09:29 | CT Report ---
PROCEDURE: CT Angio Head/Neck INDICATIONS: abrupt low GCS, intubated TECHNIQUE: After the administration of intravenous contrast, 1 mm thick sections acquired from the aortic arch t hrough the [place]. 3-dimensional khieuvh-kmeimvmny-oocilifdmm (MIP) and/or volume renderin g reformats were acquired of the central intracranial vasculature and neck separately. For radiation dose reduction, the following was used: automated exposure control, adjustment of mA and/or kV acco rding to patient size. CONTRAST: 100 ML OMNI 300 COMPARISON: Correlation is made with the accompanying imaging. FINDINGS: Image quality: Limited by bolus timing, with venous contamination. HEAD CT: CSF Spaces: Basal cisterns are patent. No extra-axial fluid collections. Ventricles are normal in size and shape. Brain: A calcified an apparently partially enhancing 11 mm lesion can be seen anterior an superior to the right frontal lobe. Skull and face: Calvarium and visualized facial bones appear intact, without suspicious lesions. Sinuses: Visualized sinuses and mastoids are clear. HEAD CT ANGIOGRAPHY: Anterior circulation: Intracranial internal carotid arteries are normal in size and flow. The flow within the paired anterior cerebral arteries is normal and symmetric. The flow within the middle cer ebral arteries is nearly normal, with potential mildly decreased flow within the distal right MCA ter ritory branches. The anterior communicating artery is seen. No aneurysms are seen. Posterior circulation: Visualized portions of the vertebral arteries demonstrate normal caliber, and join to form a normal appearing basilar artery. Flow within the posterior cerebral arteries is norm al and symmetric. No aneurysms are seen. NECK CT ANGIOGRAPHY: Carotid system: The great vessels demonstrate a conventional anatomy as they arise from the aortic a rch. The origins of the common carotid arteries appear patent. The common carotid arteries demonstr ate normal caliber and courses. The bifurcation regions are both widely patent. The internal caroti d arteries demonstrate normal calibers and courses. Posterior circulation: The origins of the vertebral arteries both appear widely patent. The more langston perior extracranial portions of both vertebral arteries also demonstrate normal courses and calibers. They join to form a normal appearing basilar artery. Soft tissues: Visualized neck soft tissues demonstrate no suspicious abnormalities. This patient has intubated, with the tip of the endotracheal tube seen 2 cm above the mariely. Associa ana fluid is noted within the nasopharynx. There is patchy infiltrate versus atelectasis seen posteriorly on the left. Bones: No suspicious bony lesions. Visualized cervical spine appears normally aligned. IMPRESSION: Nearly normal intracranial MR angiography, with potentially decreased flow within the distal MCA terr itory branches. No significant abnormality is seen within the arteries of the neck. Apparent 11 mm right frontal calcified meningioma. Intubation, with the tip of the endotracheal tube seen 2 cm above the mariely. Within the left posterior lung, there is patchy posterior atelectasis versus infiltrate. The estimate of stenosis included in the report of the imaging study was calculated using the NASCET method Note: No significant discrepancy from the preliminary report. Reviewed by: Shashi Hogan MD on 05/15/2024 8:28 AM [facility] Approved by: Shashi Hogan MD on 05/15/2024 8:28 AM [facility] Station ID: [id number]
--- NOTE | 2024-05-15 09:37 | XRAY Report ---
PROCEDURE: XR Chest 1V INDICATIONS: abrupt low GCS, intubated TECHNIQUE: One view of the chest was acquired. COMPARISON: 01/02/2024. Correlation is made with the accompanying imaging. FINDINGS: Surgical changes and devices: The tip of the endotracheal tube can be seen within the right mainstem bronchus. Lungs and pleura: No large pleural effusions or pneumothorax. Mild patchy infiltrates are seen on both sides, left worse than right. Mediastinum: Mediastinal contours appear normal. Heart size is mildly enlarged. Bones and chest wall: No suspicious bony lesions. Age-appropriate degenerative changes are seen. O verlying soft tissues appear unremarkable. IMPRESSION: The tip of the endotracheal tube is seen within the right mainstem bronchus. Mild patchy infiltrates can be seen within both lungs, left worse than right. Mild cardiomegaly. Note: No significant discrepancy from the preliminary report. Reviewed by: Shashi Hogan MD on 05/15/2024 8:36 AM [facility] Approved by: Shashi Hogan MD on 05/15/2024 8:36 AM [facility] Station ID: [id number]
--- NOTE | 2024-05-15 09:39 | XRAY Report ---
PROCEDURE: XR Chest for Line Placement INDICATIONS: following ETT adjustment TECHNIQUE: One view of the chest was acquired. COMPARISON: Earlier in the day on 04/18/2024. FINDINGS: Surgical changes and devices: The tip of endotracheal tube has been adjusted, with the tip now seen 3 cm above the mariely. Lungs and pleura: Patchy mild infiltrates can be seen involving both lungs, left worse than right, s table. Mediastinum: Mediastinal contours appear normal. Heart size is mildly enlarged. Bones and chest wall: No suspicious bony lesions. Age-appropriate degenerative changes are seen. O verlying soft tissues appear unremarkable. IMPRESSION: Interval adjustment of the tip of endotracheal tube, now seen 3 cm above the mariely. Stable patchy pulmonary opacities, left worse than right. Note: No significant discrepancy from the preliminary report. Reviewed by: Shashi Hogan MD on 05/15/2024 8:38 AM [facility] Approved by: Shashi Hogan MD on 05/15/2024 8:38 AM [facility] Station ID: [id number]
[2024-05-15] MEDS: fentaNYL 2,500 MCG in SODIUM CHLORIDE 0.9% 200 ML IV STA (09:46)
[2024-05-15] MEDS: MIDAZOLAM DRIP 50 MG/50 ML 50 MG/50 ML BAG IV SCH (10:26)
--- NOTE | 2024-05-15 10:59 | XRAY Report ---
PROCEDURE: XR Chest for Line Placement INDICATIONS: OG tube placement TECHNIQUE: One view of the chest was acquired. COMPARISON: Prior images on 05/15/2024. FINDINGS: Surgical changes and devices: A gastric tube is in place, with the tip overlying the distal stomach. An endotracheal tube is seen, with the tip 4 cm above the mariely. Lungs and pleura: No pleural effusions or pneumothorax. Mild interstitial type infiltrates are again seen. Mediastinum: Mediastinal contours appear normal. Heart size is mildly enlarged. Bones and chest wall: No suspicious bony lesions. Overlying soft tissues appear unremarkable. IMPRESSION: The tip of the gastric tube can be seen overlying the distal stomach. Reviewed by: Shashi Hogan MD on 05/15/2024 9:58 AM [facility] Approved by: Shashi Hogan MD on 05/15/2024 9:58 AM [facility] Station ID: [id number]
--- NOTE | 2024-05-15 11:06 | HISTORY & PHYSICAL EXAMINATION ---
Chief Complaint Chief Complaint Chief Complaint: Altered mental status History of Present Illness History of Present Illness HPI Comment/Other: Information was acquired from previous chart notes, family at bed side and ED physician, currently patient is intubated and sedated This is a 63-year-old female with a past medical history of MASH cirrhosis, hypothyroid and recurrent hepatic encephalopathy with elevated ammonia levels who presents to the ER intubated due to altered mental status. Per family, pt's mental status worsened over the last few days, associated with confusion and increased lethargy. Pt was unable to wake up this morning, EMS was called who intubated pt for airway protection. Niece does not think that pt is compliant with home lactulose meds. Labs are significant for a highly elevated NH4 and BUN level. Slight elevation in [place] and Cr. CT angio head/neck negative for any acute pathological issues. Chest x-ray indicates mild patchy infiltration within both lungs left within right mild cardiomegaly. KUB indicates gastric tube in the distal stomach. Pt is followed by Dr. Lance PERRY. Pt is on torsemide and spironolactone after failing lasix. Patient is full code Meds/Allgy Home Medications Ambulatory Orders Medication Instructions Recorded Confirmed Handicap Placard #2 ea 04/23/24 04/23/24 diltiazem HCl 120 mg 120 mg PO QDAY #90 caps 04/23/24 05/15/24 capsule,extended release 24 hr lactulose 10 gram/15 mL oral 30 ml PO TID #946 mL 04/23/24 05/15/24 solution levothyroxine 75 mcg capsule 75 mcg PO QAM #90 caps 04/23/24 05/15/24 pantoprazole 40 mg tablet,delayed 40 mg PO BID #90 tabs 04/23/24 05/15/24 release spironolactone 100 mg tablet 100 mg PO QAM #90 tabs 04/23/24 05/15/24 torsemide 20 mg tablet (Soaanz) 20 mg PO QDAY #90 tabs 04/23/24 05/15/24 Allergies Allergies Allergy/AdvReac Type Severity Reaction Status Date / Time amlodipine Allergy Rash Verified 05/15/24 05:48 lisinopril Allergy Unknown Verified 05/15/24 05:48 atenolol AdvReac Rash Verified 05/15/24 05:48 FOR[facility]LY [facility] Medical History Medical History (Updated 05/15/24 @ 11:45 by Krystle Catalan DO) Rheumatoid arthritis, unspecified (11/07/23) Bilateral leg edema (11/07/23) Fasting hyperglycemia (11/07/23) Acute respiratory failure 03/2024, secondary to hepatic encephalopathy, req intubation Ascites Hyperlipidemia Atrial fibrillation dx 2022 in [facility] Heart failure with preserved ejection fraction dx 2021 in setting of anemia from acute blood loss due to gastritis Hx of upper gastrointestinal hemorrhage Anemia Esophageal varices Surgical History Surgical History (Updated 04/23/24 @ 15:00 by Roxann Hoffmann, RN, BSN) Adverse anesthesia outcome difficulty breathing after anesthesia from EGD History of colonoscopy History of esophagogastroduodenoscopy (EGD) Bilateral cataracts Hx of cholecystectomy 07/2022 Social History Social History (Updated 04/23/24 @ 15:34 by Roxann Hoffmann, RN, BSN) Smoking Status: Never smoker Second hand tobacco smoke exposure: No Do you dip or chew tobacco?: No Do you vape?: No Relationship: Spouse Level: Assisted Home Mobility Equipment: Cane ETOH Use: None Substance Use: denies use POLST Patient has POLST: No Review of Systems Unable to assess, patient intubated and sedated Exam Constitutional normal general appearance and no apparent distress HENMT normocephalic, head/scalp atraumatic and external ears normal Eyes PERRL and no scleral icterus Neck/C-Spine visual inspection normal and trachea midline Chest inspection of chest normal Respiratory breath sounds equal bilaterally and normal respiratory effort Cardiovascular normal heart rate noted and regular rhythm noted Gastrointestinal abdomen normal to inspection and abdomen soft to palpation Extremities normal to inspection and normal to palpation Neurology Patient intubated and sedated Skin skin color normal and no rash Conclusion/Plan Problem List (1) Hepatic encephalopathy: Plan: Likely secondary to decompensated MASH. Patient has a history of hepatic encephalopathy, she has been hospitalized twice the last 6 months. Laboratory data indicated grossly elevated ammonia level. At this this time it is unclear the etiology of her decompensation. Most likely noncompliance. Start scheduled lactulose, monitor mental status, ammonia level. Continue rifaximin if mental status does not improve within 48 hours. (2) Acute nontraumatic kidney injury: Plan: This most likely secondary to dehydration, versus hepatorenal syndrome. Patient's BUN is also highly elevated at 50 Which likely contributes to patient's encephalopathy GARLAND can be a contributing factor for decompendated hepatic cirrhosis. Start IV hydration, monitor urine output Monitor electrolytes Consider retroperitoneal ultrasound if kidney injury does not resolve (3) Hypothyroidism: Plan: TSH admission within normal limits, continue home medication of Synthroid (4) Ventilatory failure: Plan: Currently patient intubated for airway protection due to altered mental status. Lung protective ventilation Daily SBT SAT's. (5) Community acquired pneumonia: Plan: Chest x-ray indicated bilateral lower lobe opacities. Possible trigger for decompensated hepatic encephalopathy. Patient is afebrile, no leukocytosis. Empiric ABX Rocephin, azithromycin. (6) Hyperkalemia: Plan: Likely due to dehydration and spironolactone in the background of liver cirrhosis. Creatinine elevated, continue monitor (7) Metabolic dysfunction-associated steatohepatitis (MASH): Plan: Pt has hx of MASH and decompensted MASH in the past Decompensated MASH, etiology at this Time unclear, Likely related to noncompliance. Obtain abdominal ultrasound Lactulose 4 times daily, continue spironolatone (8) Hyperammonemia: Plan: Due to decompensated MASH. Treat with NG lactulose, monitor Ammonia level Lab Results Lab results reviewed: Yes 05/15/24 05:47 05/15/24 05:47 Diagnostic Imaging Results Diagnostic Imaging Results: positive Final report reviewed
[2024-05-15] MEDS: LACTULOSE 10 GM /15 ML UDC NG STA (11:16)
[2024-05-15] MEDS: SODIUM CHLORIDE 0.9% 1,000 ML IV SCH (11:17)
[2024-05-15] MEDS: SODIUM CHLORIDE FLUSH 0.9% 10 ML SYRINGE IVP SCH (11:17)
[2024-05-15] MEDS: HEPARIN 5,000 UNIT/ML VIAL SUBQ SCH (11:17)
[2024-05-15] MEDS: FAMOTIDINE 20 MG/2 ML VIAL IVP SCH ×2 (12:10→20:40)
[2024-05-15] MEDS: SPIRONOLACTONE 25 MG TABLET PO SCH (13:44)
[2024-05-16 04:36] LABS: BASOPHILS # (AUTO) 0.1 10^3/uL (0.0-0.1); BASOPHILS % (AUTO) 1.4 %; EOSINOPHILS # (AUTO) 0.6 10^3/uL (0.0-0.7); EOSINOPHILS % (AUTO) 7.7 %; HCT - HEMATOCRIT 38.2 % (37.0-47.0); HGB - HEMOGLOBIN 12.5 g/dL (12.0-16.0); LYMPHOCYTES # (AUTO) 2.2 10^3/uL (1.5-3.5); LYMPHOCYTES % (AUTO) 30.3 %; MEAN CORPUSCULAR HEMOGLOBIN 28.3 pg (27.0-31.0); MEAN CORPUSCULAR HGB CONC 32.7 g/dL (32.0-36.0); MEAN CORPUSCULAR VOLUME 86.6 fL (81.0-99.0); MEAN PLATELET VOLUME 10.7 fL (7.9-10.8); MONOCYTES # (AUTO) 1.2 10^3/uL (0.0-1.0); MONOCYTES % (AUTO) 16.3 %; NEUTROPHILS # (AUTO) 3.2 10^3/uL (1.5-6.6); PLT - PLATELET COUNT 145 10^3/uL (130-450); RED BLOOD COUNT 4.41 10^6/uL (4.20-5.40); RED CELL DISTRIBUTION WIDTH 16.2 % (12.0-15.0); WHITE BLOOD COUNT 7.3 x10^3/uL (4.8-10.8)
[2024-05-16 04:41] LABS: CALCIUM, IONIZED 1.16 mmol/L (1.15-1.33); VBG PH 7.361 (7.31-7.41)
[2024-05-16 04:47] LABS: MAGNESIUM 2.2 mg/dL (1.7-2.3)
[2024-05-16 04:52] LABS: CALCIUM 9.1 mg/dL (8.5-10.3); CREATININE 1.5 mg/dL (0.6-1.3); PHOSPHORUS 3.7 mg/dL (2.5-5.0); POTASSIUM 4.2 mmol/L (3.5-4.5)
--- NOTE | 2024-05-16 09:17 | PROVIDER PROGRESS NOTE ---
Subjective Prog Note Date Prog Note Date: 05/16/24 Subjective Subjective: Information was acquired from previous chart notes, family at bed side and ED physician, currently patient is intubated and sedated This is a 63-year-old female with a past medical history of MASH cirrhosis, hypothyroid and recurrent hepatic encephalopathy with elevated ammonia levels who presents to the ER intubated due to altered mental status. Per family, pt's mental status worsened over the last few days, associated with confusion and increased lethargy. Pt was unable to wake up this morning, EMS was called who intubated pt for airway protection. Niece does not think that pt is compliant with home lactulose meds. Labs are significant for a highly elevated NH4 and BUN level. Slight elevation in [place] and Cr. CT angio head/neck negative for any acute pathological issues. Chest x-ray indicates mild patchy infiltration within both lungs left within right mild cardiomegaly. KUB indicates gastric tube in the distal stomach. Pt is followed by Dr. Lance PERRY. Pt is on torsemide and spironolactone after failing lasix. 05/16/2024: No overnight events. Patient remains intubated and sedated. Current Medications Current Medications Current Medications: Current Medications Generic Name Dose Route Start Last Admin Trade Name Freq PRN Reason Stop Dose Admin Acetaminophen 650 mg 05/16/24 09:07 Acetaminophen 325 Mg Tablet PO 05/19/24 23:59 Q4HR PRN Pain or Fever > 38C (100.4F) Famotidine 10 mg 05/15/24 12:46 05/16/24 08:01 Famotidine 20 Mg/2 Ml Vial IVP 10 mg BID LUZMARIA Administration Heparin Sodium (Porcine) 5,000 unit 05/15/24 09:00 05/16/24 08:01 Heparin 5,000 Unit/Ml Vial SUBQ 5,000 unit BID LUZMARIA Administration Sodium Chloride 1,000 mls @ 100 mls/hr 05/15/24 09:00 05/16/24 06:46 Normal Saline 0.9% IV 05/17/24 23:59 100 mls/hr .Q10H LUZMARIA Administration Midazolam HCl 50 mg in 50 mls @ 2.44 mls/hr 05/15/24 10:00 05/16/24 07:56 Versed Drip 50 Mg/50 Ml IV 0 mg/kg/hr .[id number] LUZMARIA 0 mls/hr Titration Protocol 0.04 MG/KG/HR Fentanyl 2,500 mcg/ Sodium 250 mls @ 6.1 mls/hr 05/15/24 09:05 05/16/24 07:56 Chloride IV 05/17/24 02:04 0 mcg/kg/hr .Q41H STA 0 mls/hr Titration Protocol 1 MCG/KG/HR Lactulose 30 gm 05/16/24 12:00 Lactulose 10 Gm /15 Ml Udc NG 05/20/24 23:59 Q6HR LUZMARIA Sodium Chloride 10 ml 05/15/24 08:58 Sodium Chloride Flush 0.9% 10 Ml Syringe IVP PRN PRN NEEDED PER PROVIDER ORDERS Sodium Chloride 10 ml 05/15/24 09:00 05/16/24 08:13 Sodium Chloride Flush 0.9% 10 Ml Syringe IVP 10 ml 0100,0900,1700 LUZMARIA Administration Spironolactone 50 mg 05/15/24 13:00 05/15/24 13:44 Spironolactone 25 Mg Tablet PO Not Given QD LUZMARIA Objective Vital Signs/Intake & Output Reviewed Vital Signs: Yes Vital Signs: Vital Signs x48h Temp Pulse Pulse Resp BP Pulse Ox 05/16/24 09:00 37.8 C 95 H 14 111/63 96 05/16/24 08:00 37.6 C 91 H 14 110/63 97 05/16/24 07:40 93 H 05/16/24 07:00 37.4 C 91 H 14 114/63 98 05/16/24 06:00 37.4 C 93 H 14 114/67 98 05/16/24 05:26 93 H 05/16/24 05:00 37.1 C 92 H 17 121/67 98 05/16/24 04:00 37.0 C 93 H 14 120/75 95 05/16/24 03:35 89 05/16/24 03:00 36.9 C 87 14 118/66 98 05/16/24 02:00 37.1 C 86 14 113/63 98 Intake & Output: Intake & Output 05/14/24 05/15/24 05/16/24 05/17/24 05:59 05:59 05:59 05:59 Intake Total 1000 / 1000 1190 / 1190 1217 / 1217 Output Total 1050 / 1050 552 / 552 Balance 1000 / 1000 140 / 140 665 / 665 Weight (kg) 61 kg Objective General Appearance: positive Other (Patient is intubated, sedated) Eyes Bilateral: positive Other (Sluggish reactive to light, like secondary to sedation) ENT: positive ENT inspection nml and Pharynx nml Neck: positive Nml inspection, Trachea midline and Other (Endotracheal tube and NG tube to present) Respiratory: positive Chest non-tender, No respiratory distress and Other (On minimal vent support) Cardiovascular: positive Regular rate & rhythm and No murmur Abdomen: positive Non-tender, No organomegaly and No distention Skin: positive Color nml, No rash and Warm Extremities: positive Full ROM Neurologic/Psychiatric: positive Other (Unable to assess, patient is intubated and sedated.) Lab Results 05/17/24 04:48 05/17/24 04:48 Other Labs: Lab Results x24hrs 05/16/24 05/15/24 Range/Units 04:21 10:30 WBC 7.3 (4.8-10.8) x10^3/uL RBC 4.41 (4.20-5.40) 10^6/uL Hgb 12.5 (12.0-16.0) g/dL Hct 38.2 (37.0-47.0) % MCV 86.6 (81.0-99.0) fL MCH 28.3 (27.0-31.0) pg MCHC 32.7 (32.0-36.0) g/dL RDW 16.2 H (12.0-15.0) % Plt Count 145 (130-450) 10^3/uL MPV 10.7 (7.9-10.8) fL Neut # (Auto) 3.2 (1.5-6.6) 10^3/uL Lymph # (Auto) 2.2 (1.5-3.5) 10^3/uL [place] # (Auto) 1.2 H (0.0-1.0) 10^3/uL Eos # (Auto) 0.6 (0.0-0.7) 10^3/uL Baso # (Auto) 0.1 (0.0-0.1) 10^3/uL Absolute Nucleated RBC 0.00 x10^3/uL Nucleated RBC % 0.0 /100WBC VBG pH 7.361 (7.31-7.41) Ionized Calcium 1.16 (1.15-1.33) mmol/L Sodium 139 (135-145) mmol/L Potassium 4.2 (3.5-4.5) mmol/L Chloride 110 (101-111) mmol/L Carbon Dioxide 24 (21-32) mmol/L Anion Gap 5.0 L (6-13) BUN 42 H (6-20) mg/dL Creatinine 1.5 H (0.6-1.3) mg/dL Estimated GFR (MDRD) 35 L (>89) Glucose 105 H (74-104) mg/dL Calcium 9.1 (8.5-10.3) mg/dL Phosphorus 3.7 (2.5-5.0) mg/dL Magnesium 2.2 (1.7-2.3) mg/dL Ammonia 71.1 (18-72) umol/L Nasal Screen MRSA (PCR) NEGATIVE (NEGATIVE) Diagnostic Imaging Diagnostic Imaging Results: positive Final report reviewed Assessment/Plan Problem List (1) Hepatic encephalopathy: Impression: Secondary to decompensated mass. Patient remains intubated and sedated. Ammonia level has decreased from low 200s to normal level upper 70s. Plan for SBT/SAT, assess mental status and possible extubation Although sedation has been off for several hours pt is not waking up enough to do SBT. Leave sedation off, assess for SBT when pt passes SAT (2) Acute nontraumatic kidney injury: Impression: Creatinine has improved, Patient makes adequate urine. Continue IV hydration, monitor urine output Monitor electrolytes GARLAND can be a contributing factor for decompendated hepatic cirrhosis. Consider retroperitoneal ultrasound if kidney Injury does not resolve (3) Hypothyroidism: Impression: Continue home medication (4) Ventilatory failure: Impression: Intubated for airway protection. Patient was in respiratory distress due to poor mental status , Plan for SAT SBT today (5) Community acquired pneumonia: Impression: Chest x-ray On 05/15/2004 indicated bilateral lower lobe opacities. Possible trigger for decompensated hepatic encephalopathy. Empiric ABX Rocephin, azithromycin. (6) Hyperkalemia: Impression: Resolved, restarted spironolactone at a lower dosage. Continue to monitor potassium levels (7) Metabolic dysfunction-associated steatohepatitis (MASH): Impression: Pt has hx of MASH and decompensted MASH in the past Decompensated MASH, etiology at this Time unclear, Likely related to noncompliance. Obtain abdominal ultrasound Lactulose 4 times daily, continue spironolatone (8) Hyperammonemia: Impression: Resolved Due to decompensated MASH. Continue with NG lactulose, monitor Ammonia level
[2024-05-16] MEDS: ACETAMINOPHEN 325 MG TABLET PO PRN (09:40)
[2024-05-16] MEDS: cefTRIAXone 1 GM in SODIUM CHLORIDE 0.9% MINIBAG 100 ML IV SCH (10:57)
[2024-05-16] MEDS ORDERED: AZITHROMYCIN 250 MG TABLET PO SCH (11:00)
--- NOTE | 2024-05-16 11:19 | Ultrasound Report ---
PROCEDURE: US Abdomen Limited INDICATIONS: Decompensated MASH TECHNIQUE: Real-time focused scanning was performed of the abdomen, with image documentation. COMPARISONS: None. FINDINGS: Liver: Liver is normal in size and heterogeneous in echotexture. Nodular liver contour. No focal int rahepatic lesions. Gallbladder: Absent. Biliary ducts: Intrahepatic bile ducts are non-dilated. Extrahepatic bile duct caliber measures 4 m m. Normal is 6-7 mm or less in diameter, or 10 mm or less post-cholecystectomy. Pancreas: Not well visualized due to overlying bowel gas. Right kidney: Right kidney is not able to be evaluated secondary to patient positioning and inability to cooperate with exam as the patient is in the ICU and sedated. IVC: Intrahepatic inferior vena cava is patent. Miscellaneous: No free abdominal fluid. IMPRESSION: Heterogeneous liver echotexture with nodular contour suggestive of cirrhotic liver. No focal intrahep atic lesions seen. Status post cholecystectomy. Overall, limited evaluation secondary to patient's inability to cooperate with examination/positionin g. Reviewed by: Wes Ingram MD on 05/16/2024 11:18 AM PST Approved by: Wes Ingram MD on 05/16/2024 11:18 AM PST Station ID: [id number]
[2024-05-16] MEDS: LACTULOSE 10 GM /15 ML UDC NG SCH (12:06)
[2024-05-16] MEDS: ACETAMINOPHEN 160 MG/5 ML SUSP UDC NG PRN (18:14)
[2024-05-17] MEDS: fentaNYL 2,500 MCG in SODIUM CHLORIDE 0.9% 200 ML IV SCH (01:02)
[2024-05-17 05:25] LABS: BASOPHILS # (AUTO) 0.1 10^3/uL (0.0-0.1); BASOPHILS % (AUTO) 0.8 %; EOSINOPHILS # (AUTO) 0.5 10^3/uL (0.0-0.7); EOSINOPHILS % (AUTO) 6.7 %; HCT - HEMATOCRIT 38.4 % (37.0-47.0); HGB - HEMOGLOBIN 12.1 g/dL (12.0-16.0); LYMPHOCYTES # (AUTO) 1.7 10^3/uL (1.5-3.5); LYMPHOCYTES % (AUTO) 22.5 %; MEAN CORPUSCULAR HEMOGLOBIN 28.1 pg (27.0-31.0); MEAN CORPUSCULAR HGB CONC 31.5 g/dL (32.0-36.0); MEAN CORPUSCULAR VOLUME 89.1 fL (81.0-99.0); MEAN PLATELET VOLUME 10.7 fL (7.9-10.8); MONOCYTES # (AUTO) 1.2 10^3/uL (0.0-1.0); MONOCYTES % (AUTO) 15.9 %; NEUTROPHILS # (AUTO) 4.1 10^3/uL (1.5-6.6); NEUTROPHILS % (AUTO) 53.6 %; PLT - PLATELET COUNT 114 10^3/uL (130-450); RED BLOOD COUNT 4.31 10^6/uL (4.20-5.40); RED CELL DISTRIBUTION WIDTH 16.1 % (12.0-15.0); WHITE BLOOD COUNT 7.7 x10^3/uL (4.8-10.8)
[2024-05-17 05:40] LABS: CALCIUM 8.5 mg/dL (8.5-10.3); CREATININE 1.2 mg/dL (0.6-1.3); POTASSIUM 4.3 mmol/L (3.5-4.5)
--- NOTE | 2024-05-17 08:23 | PROVIDER PROGRESS NOTE ---
Subjective Prog Note Date Prog Note Date: 05/17/24 Subjective Subjective: Information was acquired from previous chart notes, family at bed side and ED physician, currently patient is intubated and sedated This is a 63-year-old female with a past medical history of MASH cirrhosis, hypothyroid and recurrent hepatic encephalopathy with elevated ammonia levels who presents to the ER intubated due to altered mental status. Per family, pt's mental status worsened over the last few days, associated with confusion and increased lethargy. Pt was unable to wake up this morning, EMS was called who intubated pt for airway protection. Niece does not think that pt is compliant with home lactulose meds. Labs are significant for a highly elevated NH4 and BUN level. Slight elevation in [place] and Cr. CT angio head/neck negative for any acute pathological issues. Chest x-ray indicates mild patchy infiltration within both lungs left within right mild cardiomegaly. KUB indicates gastric tube in the distal stomach. Pt is followed by Dr. Lance PERRY. Pt is on torsemide and spironolactone after failing lasix. 05/16/2024: No overnight events. Patient remains intubated and sedated. 05/17/2024: Patient was agitated at times overnight. Sedation was restarted For several hours. Patient is difficult to wake. Patient devaughn intubated Current Medications Current Medications Current Medications: Current Medications Generic Name Dose Route Start Last Admin Trade Name Freq PRN Reason Stop Dose Admin Acetaminophen 640 mg 05/16/24 10:18 05/17/24 04:24 Acetaminophen 160 Mg/5 Ml Susp Udc NG 640 mg Q4HR PRN Administration Pain or Fever > 38C (100.4F) Famotidine 10 mg 05/15/24 12:46 05/16/24 20:50 Famotidine 20 Mg/2 Ml Vial IVP 10 mg BID LUZMARIA Administration Heparin Sodium (Porcine) 5,000 unit 05/15/24 09:00 05/16/24 20:47 Heparin 5,000 Unit/Ml Vial SUBQ 5,000 unit BID LUZMARIA Administration Sodium Chloride 1,000 mls @ 50 mls/hr 05/15/24 09:00 05/17/24 05:33 Normal Saline 0.9% IV 05/17/24 23:59 50 mls/hr .Q20H LUZMARIA Infusion Midazolam HCl 50 mg in 50 mls @ 2.44 mls/hr 05/15/24 10:00 05/17/24 05:00 Versed Drip 50 Mg/50 Ml IV 0 mg/kg/hr .[id number] LUZMARIA 0 mls/hr Titration Protocol 0.04 MG/KG/HR Ceftriaxone Sodium 1 gm/ 100 mls @ 200 mls/hr 05/16/24 11:00 05/16/24 11:30 Sodium Chloride IV Infused DAILY LUZMARIA Infusion Fentanyl 2,500 mcg/ Sodium 250 mls @ 6.1 mls/hr 05/17/24 01:00 05/17/24 06:01 Chloride IV 0 mcg/kg/hr .Q41H LUZMARIA 0 mls/hr Titration Protocol 1 MCG/KG/HR Lactulose 30 gm 05/16/24 12:00 05/17/24 06:09 Lactulose 10 Gm /15 Ml Udc NG 05/20/24 23:59 30 gm Q6HR LUZMARIA Administration Sodium Chloride 10 ml 05/15/24 08:58 Sodium Chloride Flush 0.9% 10 Ml Syringe IVP PRN PRN NEEDED PER PROVIDER ORDERS Sodium Chloride 10 ml 05/15/24 09:00 05/16/24 23:47 Sodium Chloride Flush 0.9% 10 Ml Syringe IVP 10 ml 0100,0900,1700 LUZMARIA Administration Spironolactone 100 mg 05/17/24 08:15 Spironolactone 25 Mg Tablet PO QD LUZMARIA Torsemide 20 mg 05/17/24 09:00 Torsemide 20 Mg Tablet PO QDAY LUZMARIA Objective Vital Signs/Intake & Output Reviewed Vital Signs: Yes Vital Signs: Vital Signs x48h Temp Pulse Pulse Resp BP Pulse Ox 05/17/24 08:00 37.3 C 84 14 118/67 98 05/17/24 07:00 37.6 C 81 14 116/66 98 05/17/24 06:54 81 05/17/24 06:15 37.8 C 89 12 104/62 98 05/17/24 05:04 38.1 C H 88 14 97/61 98 05/17/24 04:00 38.1 C H 89 14 109/62 98 05/17/24 03:30 90 05/17/24 03:00 38 C H 89 14 109/62 98 05/17/24 02:00 38.1 C H 93 H 14 126/67 98 05/17/24 01:33 99 H 05/17/24 01:00 38.1 C H 100 H 14 120/65 97 Intake & Output: Intake & Output 05/15/24 05/16/24 05/17/24 05/18/24 05:59 05:59 05:59 05:59 Intake Total 1000 / 1000 1190 / 1190 3521 / 3521 30 Output Total 1050 / 1050 1379 / 1379 85 / 85 Balance 1000 / 1000 140 / 140 2142 / 2142 -55 / -55 Weight (kg) 61 kg Objective General Appearance: positive Other (Patient is intubated, sedated) Eyes Bilateral: positive Other (Sluggish reactive to light, like secondary to sedation) ENT: positive ENT inspection nml and Pharynx nml Neck: positive Nml inspection, Trachea midline and Other (Endotracheal tube and NG tube to present) Respiratory: positive Chest non-tender, No respiratory distress and Other (On minimal vent support) Cardiovascular: positive Regular rate & rhythm and No murmur Abdomen: positive Non-tender, No organomegaly and No distention Skin: positive Color nml, No rash and Warm Extremities: positive Full ROM Neurologic/Psychiatric: positive Other (Unable to assess, patient is intubated and sedated.) Lab Results 05/17/24 04:48 05/17/24 04:48 Other Labs: Lab Results x24hrs 05/17/24 05/17/24 05/17/24 Range/Units 06:15 04:48 00:10 WBC 7.7 (4.8-10.8) x10^3/uL RBC 4.31 (4.20-5.40) 10^6/uL Hgb 12.1 (12.0-16.0) g/dL Hct 38.4 (37.0-47.0) % MCV 89.1 (81.0-99.0) fL MCH 28.1 (27.0-31.0) pg MCHC 31.5 L (32.0-36.0) g/dL RDW 16.1 H (12.0-15.0) % Plt Count 114 L (130-450) 10^3/uL MPV 10.7 (7.9-10.8) fL Neut # (Auto) 4.1 (1.5-6.6) 10^3/uL Lymph # (Auto) 1.7 (1.5-3.5) 10^3/uL [place] # (Auto) 1.2 H (0.0-1.0) 10^3/uL Eos # (Auto) 0.5 (0.0-0.7) 10^3/uL Baso # (Auto) 0.1 (0.0-0.1) 10^3/uL Absolute Nucleated RBC 0.00 x10^3/uL Nucleated RBC % 0.0 /100WBC Sodium 141 (135-145) mmol/L Potassium 4.3 (3.5-4.5) mmol/L Chloride 114 H (101-111) mmol/L Carbon Dioxide 23 (21-32) mmol/L Anion Gap 4.0 L (6-13) BUN 31 H (6-20) mg/dL Creatinine 1.2 (0.6-1.3) mg/dL Estimated GFR (MDRD) 45 L (>89) Glucose 120 H (74-104) mg/dL POC Whole Bld Glucose 105 125 (70-100) mg/dL Calcium 8.5 (8.5-10.3) mg/dL 05/16/24 05/16/24 Range/Units 17:53 11:58 WBC (4.8-10.8) x10^3/uL RBC (4.20-5.40) 10^6/uL Hgb (12.0-16.0) g/dL Hct (37.0-47.0) % MCV (81.0-99.0) fL MCH (27.0-31.0) pg MCHC (32.0-36.0) g/dL RDW (12.0-15.0) % Plt Count (130-450) 10^3/uL MPV (7.9-10.8) fL Neut # (Auto) (1.5-6.6) 10^3/uL Lymph # (Auto) (1.5-3.5) 10^3/uL [place] # (Auto) (0.0-1.0) 10^3/uL Eos # (Auto) (0.0-0.7) 10^3/uL Baso # (Auto) (0.0-0.1) 10^3/uL Absolute Nucleated RBC x10^3/uL Nucleated RBC % /100WBC Sodium (135-145) mmol/L Potassium (3.5-4.5) mmol/L Chloride (101-111) mmol/L Carbon Dioxide (21-32) mmol/L Anion Gap (6-13) BUN (6-20) mg/dL Creatinine (0.6-1.3) mg/dL Estimated GFR (MDRD) (>89) Glucose (74-104) mg/dL POC Whole Bld Glucose 108 100 (70-100) mg/dL Calcium (8.5-10.3) mg/dL Diagnostic Imaging Diagnostic Imaging Results: positive Final report reviewed Assessment/Plan Problem List (1) Hepatic encephalopathy: Impression: Secondary to decompensated MASH. Patient remains intubated, not sedated. Ammonia level had decreased from low 200s to normal level upper 70s Yesterday. Difficult to assess if hepatic encephalopathy has resolved, since patient was restarted on sedation at the nighttime. Currently patient is quite difficult to wake. Stop sedation, plan for SAT SBT this afternoon. (2) Acute nontraumatic kidney injury: Impression: Resolved Creatinine is at baseline, Patient makes adequate urine. Continue IV hydration, monitor urine output Monitor electrolytes Restart patient on torsemide home dosage and spironolactone home dosage [place] can be a contributing factor for decompendated hepatic cirrhosis. Restart patient (3) Hypothyroidism: Impression: Continue home medication (4) Ventilatory failure: Impression: Intubated for airway protection. Patient was in respiratory distress due to poor mental status , Plan for SAT SBT today And possible extubation (5) Community acquired pneumonia: Impression: Chest x-ray On 05/15/2004 indicated bilateral lower lobe opacities. Possible trigger for decompensated hepatic encephalopathy. Continue Empiric ABX Rocephin, azithromycin Day 3 (6) Hyperkalemia: Impression: Resolved, restarted spironolactone at a lower dosage. Continue to monitor potassium levels (7) Metabolic dysfunction-associated steatohepatitis (MASH): Impression: Pt has hx of MASH and decompensted MASH in the past Decompensated MASH, etiology at this Time unclear, Likely related to noncompliance. abdominal ultrasound Is unremarkable besides a Known chronic cirrhotic liver Lactulose 4 times daily, continue spironolatone (8) Hyperammonemia: Impression: Resolved Due to decompensated MASH. Continue with NG lactulose, monitor Ammonia level
[2024-05-17] MEDS: SPIRONOLACTONE 25 MG TABLET PO SCH (08:38)
[2024-05-17] MEDS: TORSEMIDE 20 MG TABLET PO SCH (08:38)
--- NOTE | 2024-05-17 11:45 | PHARMACY PROGRESS NOTE ---
Best Possible Medication History Admit Date and Time: 05/15/24 125465 Home Medications Medication Instructions Recorded Confirmed Type Handicap Placronnie #2 ea 04/23/24 04/23/24 Rx lactulose 10 gram/15 mL oral 30 ml PO TID #946 mL 04/23/24 05/15/24 Rx solution levothyroxine 75 mcg capsule 75 mcg PO QAM #90 caps 04/23/24 05/15/24 Rx pantoprazole 40 mg tablet,delayed 40 mg PO BID #90 tabs 04/23/24 05/15/24 Rx release spironolactone 100 mg tablet 100 mg PO QAM #90 tabs 04/23/24 05/15/24 Rx torsemide 20 mg tablet (Soaanz) 20 mg PO QDAY #90 tabs 04/23/24 05/15/24 Rx diltiazem HCl 120 mg capsule,24 120 mg PO DAILY 05/17/24 05/17/24 History hr,extended release Processed by: Pharmacy Medications reviewed in ED?: No Medication History completed: Yes Patient Interview: Pt unable to participate Secondary Source(s): Prescription bottles (patient does have bottle for torsemide, however there is a recent note on the prescription about it being on hold. unable to confirm) [facility] Statement: As the person ultimately responsible for medication therapy, providers are able to order a medication from an existing home medication list in [facility] via the "Reconcile Routine" prior to Confirmation of that medication by application support. Such practice is discouraged except when the physician, in their clinical judgment, deems that a medical need exists for a medication without regard to previous use.
[2024-05-17] MEDS ORDERED: LORazepam 2 MG/ML VIAL IVP PRN (16:50)
[2024-05-17 17:43] LABS: ABG BASE EXCESS 0.7 mmol/L (-2.0-3.0); ABG HCO3 25.2 mmol/L (22.0-26.0); ABG PCO2 40 mmHg (34-45); ABG PH 7.42 (7.35-7.45); ABG PO2 106 mmHg (80-100); ABG TCO2 26.4 MMOL/L (21.0-29.0)
[2024-05-17 17:44] LABS: ABG OXYGEN SATURATION 98 % (94-98); ALLEN TEST POSITIVE
--- NOTE | 2024-05-17 18:10 | Discharge Summary ---
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 - resolved, Continue home medication of spironolactone, torsemide and lactulose Hyperammonia state - See above Hypothyroidism - On home medication Respiratory failure - Resolved, extubated on 05/17/2004 Hyperkalemia - Resolved GARLAND - resolved HPI History of Present Illness: Information was acquired from previous chart notes, family at bed side and ED physician, currently patient is intubated and sedated This is a 63-year-old female with a past medical history of MASH cirrhosis, hypothyroid and recurrent hepatic encephalopathy with elevated ammonia levels who presents to the ER intubated due to altered mental status. Per family, pt's mental status worsened over the last few days, associated with confusion and increased lethargy. Pt was unable to wake up this morning, EMS was called who intubated pt for airway protection. Niece does not think that pt is compliant with home lactulose meds. Labs are significant for a highly elevated NH4 and BUN level. Slight elevation in [place] and Cr. CT angio head/neck negative for any acute pathological issues. Chest x-ray indicates mild patchy infiltration within both lungs left within right mild cardiomegaly. KUB indicates gastric tube in the distal stomach. Pt is followed by Dr. Lance PERRY. Pt is on torsemide and spironolactone after failing lasix. 05/16/2024: No overnight events. Patient remains intubated and sedated. 05/17/2024: Patient was agitated at times overnight. Sedation was restarted For several hours. Patient is difficult to wake. Patient devaughn intubated HOSPITAL COURSE Hospital Course: Patient was admitted on 05/15/2004 intubated secondary to hepatic cephalopathy and even protection. Patient was started on lactulose every 6. Hyper ammonia resolved. After resolution of ammonia level, sedation was stopped, patient was given the opportunity to wake up which took about 36 hours. Serial ABGs indicated adequate respiratory drive. Patient was extubated on 05/17/2024. Patient had chest ray indicated questionable opacity on the right lung. Patient was treated with Rocephin azithromycin during hospital stay. GARLAND resolved with IV fluids. Patient's thyroid level was adequate, home medication of Synthroid was continued during hospital stay. ALLERGIES Allergies Allergy/AdvReac Type Severity Reaction Status Date / Time amlodipine Allergy Edema Verified 05/17/24 11:42 lisinopril Allergy Unknown Verified 05/15/24 05:48 atenolol AdvReac Rash Verified 05/15/24 05:48 metoprolol AdvReac foot Verified 05/17/24 11:42 swelling MEDICATIONS Ambulatory Orders Medication Instructions Recorded Confirmed Handicap Placard #2 ea 04/23/24 04/23/24 lactulose 10 gram/15 mL oral 30 ml PO TID #946 mL 04/23/24 05/15/24 solution levothyroxine 75 mcg capsule 75 mcg PO QAM #90 caps 04/23/24 05/15/24 pantoprazole 40 mg tablet,delayed 40 mg PO BID #90 tabs 04/23/24 05/15/24 release spironolactone 100 mg tablet 100 mg PO QAM #90 tabs 04/23/24 05/15/24 torsemide 20 mg tablet (Soaanz) 20 mg PO QDAY #90 tabs 04/23/24 05/15/24 diltiazem HCl 120 mg capsule,24 120 mg PO DAILY 05/17/24 05/17/24 hr,extended release LABS 05/17/24 04:48 05/17/24 04:48 Discharge Plan Discharge Patient Disposition: 01 Home, Self Care Condition: Stable Prescriptions: Continued diltiazem HCl 120 mg capsule,extended release 24 hr 120 mg PO DAILY lactulose 10 gram/15 mL solution 30 ml PO TID Qty: 946 12RF levothyroxine 75 mcg capsule 75 mcg PO QAM Qty: 90 1RF pantoprazole 40 mg tablet,delayed release (DR/EC) 40 mg PO BID Qty: 90 1RF spironolactone 100 mg tablet 100 mg PO QAM Qty: 90 1RF torsemide [Soaanz] 20 mg tablet 20 mg PO QDAY Qty: 90 1RF No Action (DME) Handicap Placard Unit See Rx Instructions .MEDSUPPLY Qty: 2 0RF Rx Instructions: Permanent Disabled Parking Permit. Cannot walk more than 200 feet without stopping to rest. Activity Restrictions: No Restrictions Diet: Regular Assessment: You are admitted for hepatic encephalopathy secondary to decompensated liver cirrhosis secondary to JACKSON. You were on vent support for airway protection. We started you and lactulose every 6 hours, this to resolved your hyperamonia state. Please continue your home medication of lactulose 3 times daily, spironolactone and torsemide. Print Language: Yakut Stand Alone Forms: PCP List
[2024-05-18 05:34] LABS: BASOPHILS % (AUTO) 0.9 %; EOSINOPHILS % (AUTO) 11.6 %; HCT - HEMATOCRIT 41.1 % (37.0-47.0); HGB - HEMOGLOBIN 13.2 g/dL (12.0-16.0); LYMPHOCYTES % (AUTO) 24.6 %; MEAN CORPUSCULAR HEMOGLOBIN 28.3 pg (27.0-31.0); MEAN CORPUSCULAR HGB CONC 32.1 g/dL (32.0-36.0); MEAN CORPUSCULAR VOLUME 88.2 fL (81.0-99.0); MEAN PLATELET VOLUME 10.8 fL (7.9-10.8); MONOCYTES % (AUTO) 19.9 %; NEUTROPHILS % (AUTO) 42.7 %; PLT - PLATELET COUNT 119 10^3/uL (130-450); RED BLOOD COUNT 4.66 10^6/uL (4.20-5.40); RED CELL DISTRIBUTION WIDTH 16.2 % (12.0-15.0); WHITE BLOOD COUNT 7.6 x10^3/uL (4.8-10.8)
[2024-05-18 05:46] LABS: ABNORMAL LYMPHS % (MANUAL) 0 %; BAND NEUTROPHILS % (MANUAL) 0 %
[2024-05-18 05:49] LABS: CALCIUM 9.2 mg/dL (8.5-10.3); POTASSIUM 3.8 mmol/L (3.5-4.5)
[2024-05-18 06:35] LABS: DIFFERENTIAL COMMENT MANUAL DIFFERENTIAL; EOSINOPHILS # (MANUAL) 0.5 10^3/uL (0-0.7); LYMPHOCYTES # (MANUAL) 0.9 10^3/uL (1.5-3.5); LYMPHOCYTES % (MANUAL) 12 %; MONOCYTES # (MANUAL) 1.1 10^3/uL (0.0-1.0); NEUTROPHILS # (MANUAL) 5.1 10^3/uL (1.5-6.6); PLATELET ESTIMATE, MANUAL DECREASED (<130,000) (NORMAL); PLATELET MORPHOLOGY NORMAL APPEARANCE (NORMAL); RBC MORPHOLOGY (MULTIPLE) NORMAL APPEARANCE (NORMAL); WBC MORPHOLOGY (MULTIPLE) NORMAL APPEARANCE (NORMAL)
[2024-05-18] MEDS: CARBOXYMETHYLCELLULOSE OPHTH DROPS EACHEYE PRN (07:02)
--- NOTE | 2024-05-18 11:06 | PROVIDER PROGRESS NOTE ---
Subjective Subjective Subjective: Patient is a 63 year old female wit a history of cirrhosis secondary to JACKSON who presented due to altered mentation due to hepatic encephalopathy. She was intubated for airway protection; she was extubated yesterday 05/17. Of note, patient was admitted to [facility] from 03/16 - 03/31 for similar reason. At that time, she was also intubated for airway protection. There were concerns for myxedema coma, but endocrinology was consulted, and this was ruled out. Lactulose was started, and her mental status improved there as well. At that time, she also had dysphagia post extubation. However, this resolved, and she was discharged home on a regular diet. Discharge medications: Protonix 40 mg twice daily, spironolactone 100 mg daily, diltiazem and 20 mg every 24 hours This morning, she is alert and oriented x 4. She is slow to respond but is responding appropriately. She is having difficulty swallowing this morning, but states that she is hungry. She is not able to swallow even thickened liquids. Current Medications Current Medications Current Medications: Current Medications Generic Name Dose Route Start Last Admin Trade Name Freq PRN Reason Stop Dose Admin Acetaminophen 640 mg 05/16/24 10:18 05/17/24 04:24 Acetaminophen 160 Mg/5 Ml Susp Udc NG 640 mg Q4HR PRN Administration Pain or Fever > 38C (100.4F) Carboxymethylcellulose 1 drops 05/18/24 06:57 05/18/24 07:02 Carboxymethylcellulose Ophth Drops EACHEYE 1 drops PRN PRN Administration Dry Eye Famotidine 10 mg 05/15/24 12:46 05/17/24 20:07 Famotidine 20 Mg/2 Ml Vial IVP 10 mg BID LUZMARIA Administration Heparin Sodium (Porcine) 5,000 unit 05/15/24 09:00 05/17/24 20:12 Heparin 5,000 Unit/Ml Vial SUBQ Not Given BID LUZMARIA Ceftriaxone Sodium 1 gm/ 100 mls @ 200 mls/hr 05/16/24 11:00 05/17/24 08:51 Sodium Chloride IV Infused DAILY LUZMARIA Infusion Lactulose 30 gm 05/16/24 12:00 05/18/24 05:14 Lactulose 10 Gm /15 Ml Udc NG 05/20/24 23:59 Not Given Q6HR LUZMARIA Lorazepam 0.5 mg 05/17/24 16:50 Lorazepam 2 Mg/Ml Vial IVP Q6H PRN Anxiety Sodium Chloride 10 ml 05/15/24 08:58 Sodium Chloride Flush 0.9% 10 Ml Syringe IVP PRN PRN NEEDED PER PROVIDER ORDERS Sodium Chloride 10 ml 05/15/24 09:00 05/17/24 20:12 Sodium Chloride Flush 0.9% 10 Ml Syringe IVP 10 ml 0100,0900,1700 LUZMARIA Administration Spironolactone 100 mg 05/17/24 08:15 05/17/24 08:38 Spironolactone 25 Mg Tablet PO 100 mg QD LUZMARIA Administration Torsemide 20 mg 05/17/24 09:00 05/17/24 08:38 Torsemide 20 Mg Tablet PO 20 mg DAILY LUZMARIA Administration Objective Vital Signs/Intake & Output Reviewed Vital Signs: Yes Vital Signs: Vital Signs x48h Temp Pulse Resp BP Pulse Ox 05/18/24 11:00 98.6 F 90 11 L 144/79 H 98 05/18/24 10:00 98.6 F 91 H 15 150/78 H 96 05/18/24 09:00 98.4 F 88 20 140/80 H 97 05/18/24 08:00 98.2 F 89 10 L 132/78 H 97 05/18/24 07:00 89 13 120/67 97 05/18/24 06:00 98.4 F 89 12 143/89 H 97 05/18/24 05:00 90 14 141/72 H 96 05/18/24 04:00 98.8 F 93 H 13 125/71 96 Intake & Output: Intake & Output 05/16/24 05/17/24 05/18/24 05/19/24 05:59 05:59 05:59 05:59 Intake Total 1190 / 1190 3521 / 3521 873 / 873 Output Total 1050 / 1050 1379 / 1379 3305 / 3305 165 / 165 Balance 140 / 140 2142 / 2142 -2432 / -2432 -165 / -165 Weight (kg) 55.5 kg Objective General Appearance: positive No acute distress and Alert Eyes Bilateral: positive Normal inspection, PERRL and EOMI ENT: positive ENT inspection nml and Pharynx nml Neck: positive Nml inspection and Trachea midline Respiratory: positive Chest non-tender, No respiratory distress and Breath sounds nml Cardiovascular: positive Regular rate & rhythm and No murmur Abdomen: positive Non-tender, No organomegaly and No distention Skin: positive Color nml, No rash and Warm Extremities: positive Full ROM Neurologic/Psychiatric: positive Oriented x3, Mood/affect nml and Weakness Lab Results 05/18/24 04:13 05/18/24 04:13 Other Labs: Lab Results x24hrs 05/18/24 05/18/24 05/17/24 Range/Units 05:51 04:13 23:51 WBC 7.6 (4.8-10.8) x10^3/uL RBC 4.66 (4.20-5.40) 10^6/uL Hgb 13.2 (12.0-16.0) g/dL Hct 41.1 (37.0-47.0) % MCV 88.2 (81.0-99.0) fL MCH 28.3 (27.0-31.0) pg MCHC 32.1 (32.0-36.0) g/dL RDW 16.2 H (12.0-15.0) % Plt Count 119 L (130-450) 10^3/uL MPV 10.8 (7.9-10.8) fL Neut # (Auto) Not Reportable Lymph # (Auto) Not Reportable Louis[place] # (Auto) Not Reportable Eos # (Auto) Not Reportable Baso # (Auto) Not Reportable Absolute Nucleated RBC Not Reportable Total Counted 100 Band Neuts % (Manual) 0 (0 - 10) % Abnorm Lymph % (Manual) 0 % Nucleated RBC % Not Reportable Neutrophils # (Manual) 5.1 (1.5-6.6) 10^3/uL Lymphocytes # (Manual) 0.9 L (1.5-3.5) 10^3/uL Monocytes # (Manual) 1.1 H (0.0-1.0) 10^3/uL Eosinophils # (Manual) 0.5 (0-0.7) 10^3/uL Basophils # (Manual) 0.0 (0-0.1) 10^3/uL Differential Comment MANUAL DIFFERENTIAL WBC Morphology NORMAL APPEARANCE (NORMAL) Platelet Estimate DECREASED (<130,000) (NORMAL) Platelet Morphology NORMAL APPEARANCE (NORMAL) RBC Morph Micro Appear NORMAL APPEARANCE (NORMAL) Bld Gas Analysis Time Sample Site ABG pH (7.35-7.45) ABG pCO2 (34-45) mmHg ABG pO2 (80-100) mmHg ABG HCO3 (22.0-26.0) mmol/L ABG Total CO2 (21.0-29.0) MMOL/L ABG O2 Saturation (94-98) % ABG Base Excess (-2.0-3.0) mmol/L Jensen Test O2 Delivery Device Vent Mode FiO2 PEEP cmH2O Pressure Support Vent cmH2O Sodium 142 (135-145) mmol/L Potassium 3.8 (3.5-4.5) mmol/L Chloride 109 (101-111) mmol/L Carbon Dioxide 27 (21-32) mmol/L Anion Gap 6.0 (6-13) BUN 25 H (6-20) mg/dL Creatinine 1.0 (0.6-1.3) mg/dL Estimated GFR (MDRD) 56 L (>89) Glucose 92 (74-104) mg/dL POC Whole Bld Glucose 96 100 (70-100) mg/dL Calcium 9.2 (8.5-10.3) mg/dL 05/17/24 05/17/24 Range/Units 17:25 11:41 WBC (4.8-10.8) x10^3/uL RBC (4.20-5.40) 10^6/uL Hgb (12.0-16.0) g/dL Hct (37.0-47.0) % MCV (81.0-99.0) fL MCH (27.0-31.0) pg MCHC (32.0-36.0) g/dL RDW (12.0-15.0) % Plt Count (130-450) 10^3/uL MPV (7.9-10.8) fL Neut # (Auto) Lymph # (Auto) Louis[place] # (Auto) Eos # (Auto) Baso # (Auto) Absolute Nucleated RBC Total Counted Band Neuts % (Manual) (0 - 10) % Abnorm Lymph % (Manual) % Nucleated RBC % Neutrophils # (Manual) (1.5-6.6) 10^3/uL Lymphocytes # (Manual) (1.5-3.5) 10^3/uL Monocytes # (Manual) (0.0-1.0) 10^3/uL Eosinophils # (Manual) (0-0.7) 10^3/uL Basophils # (Manual) (0-0.1) 10^3/uL Differential Comment WBC Morphology (NORMAL) Platelet Estimate (NORMAL) Platelet Morphology (NORMAL) RBC Morph Micro Appear (NORMAL) Bld Gas Analysis Time 1730 Sample Site RIGHT RADIAL ABG pH 7.42 (7.35-7.45) ABG pCO2 40 (34-45) mmHg ABG pO2 106 H (80-100) mmHg ABG HCO3 25.2 (22.0-26.0) mmol/L ABG Total CO2 26.4 (21.0-29.0) MMOL/L ABG O2 Saturation 98 (94-98) % ABG Base Excess 0.7 (-2.0-3.0) mmol/L Jensen Test POSITIVE O2 Delivery Device VENTILATOR Vent Mode FiO2 25.00 PEEP 5 cmH2O Pressure Support Vent 12 cmH2O Sodium (135-145) mmol/L Potassium (3.5-4.5) mmol/L Chloride (101-111) mmol/L Carbon Dioxide (21-32) mmol/L Anion Gap (6-13) BUN (6-20) mg/dL Creatinine (0.6-1.3) mg/dL Estimated GFR (MDRD) (>89) Glucose (74-104) mg/dL POC Whole Bld Glucose 113 (70-100) mg/dL Calcium (8.5-10.3) mg/dL Diagnostic Imaging Diagnostic Imaging Results: positive Final report reviewed Assessment/Plan Problem List (1) Hepatic encephalopathy: Impression: Resolved. Patient presented with altered mentation requiring intubation. Extubated on 05/17. Ammonia level 222 on admission, repeat was 71.1. Continue lactulose four times a day. (2) Dysphagia: Impression: Speech therapy consulted; unsure if able to see her today. Previous discharge summary noted from 04/08 at [place], patient had dysphagia postextubation at that hospital as well. However, this resolved and patient was sent home on a regular diet. Will hold off on NG tube in case dysphagia improves by tomorrow. said it took 2 days last time. Lactulose enema ordered at this time, scheduled every 6 hours for the next 24 hours. Qualifiers: Dysphagia type: oropharyngeal phase Qualified Code(s): R13.12 - Dysphagia, oropharyngeal phase (3) Acute nontraumatic kidney injury: Impression: Resolved. Patient is supposed to be on spironolactone and torsemide in the outpatient setting. Will do IV Lasix at this time as patient is not able to swallow oral medications. (4) Hypothyroidism: Impression: Patient's TSH was 0.87 on admission. At last hospitalization, there were concerns for possible myxedema coma. Unlikely at this time. Home levothyroxine is held at this time as patient cannot swallow pills. Will reassess tomorrow; if still unable to swallow, will start IV levothyroxine. Qualifiers: Hypothyroidism type: unspecified Qualified Code(s): E03.9 - Hypothyroidism, unspecified (5) Community acquired pneumonia: Impression: Possible bilateral lower lobe opacities. Completed 3 days of azithromycin. Continue 2 more days of IV Rocephin for community-acquired pneumonia. Qualifiers: Laterality: unspecified laterality Qualified Code(s): J18.9 - Pneumonia, unspecified organism (6) Hyperkalemia: Impression: Resolved. Continue IV Lasix. Continue to monitor. (7) Hyperammonemia: Impression: Resolved; continue lactulose. (8) Paroxysmal atrial fibrillation: Impression: Patient on diltiazem in the outpatient setting. Not on any anticoagulation as has a history of GI bleed, as well as esophageal varices. Held at this time due to borderline blood pressures, will restart when able. (9) Ventilatory failure: Impression: Resolved. Extubated on room air.
[2024-05-18] MEDS: LIDOCAINE JELLY 2% 6 ML JEL.PF.APP TOP ONE (14:07)
[2024-05-18] MEDS: LACTULOSE 10 GM/15 ML BOTTLE PR ONE (14:56)
[2024-05-18] MEDS: PANTOPRAZOLE 40 MG VIAL IVP SCH ×2 (21:02)
[2024-05-18] MEDS: SODIUM CHLORIDE FLUSH 0.9% 10 ML SYRINGE IVP PRN (21:02)
[2024-05-19 05:38] LABS: BASOPHILS # (AUTO) 0.1 10^3/uL (0.0-0.1); EOSINOPHILS # (AUTO) 0.8 10^3/uL (0.0-0.7); EOSINOPHILS % (AUTO) 11.2 %; HCT - HEMATOCRIT 41.3 % (37.0-47.0); LYMPHOCYTES # (AUTO) 1.8 10^3/uL (1.5-3.5); LYMPHOCYTES % (AUTO) 25.9 %; MEAN CORPUSCULAR HGB CONC 31.5 g/dL (32.0-36.0); MEAN CORPUSCULAR VOLUME 88.8 fL (81.0-99.0); MEAN PLATELET VOLUME 11.6 fL (7.9-10.8); MONOCYTES # (AUTO) 1.3 10^3/uL (0.0-1.0); MONOCYTES % (AUTO) 18.2 %; NEUTROPHILS % (AUTO) 43.1 %; PLT - PLATELET COUNT 144 10^3/uL (130-450); RED BLOOD COUNT 4.65 10^6/uL (4.20-5.40); RED CELL DISTRIBUTION WIDTH 16.1 % (12.0-15.0)
[2024-05-19 05:52] LABS: ALBUMIN 2.8 g/dL (3.2-5.5); ALBUMIN/GLOBULIN RATIO 0.7 (1.0-2.2); BILIRUBIN,TOTAL 1.4 mg/dL (0.2-1.0); CALCIUM 9.3 mg/dL (8.5-10.3); CREATININE 0.9 mg/dL (0.6-1.3); TOTAL PROTEIN 6.8 g/dL (6.4-8.9)
[2024-05-19] MEDS ORDERED: FUROSEMIDE 20 MG/2 ML VIAL IVP SCH (09:00)
[2024-05-19] MEDS: SPIRONOLACTONE 25 MG TABLET PO SCH (10:00)
[2024-05-19] MEDS: PANTOPRAZOLE 40 MG VIAL IVP SCH (10:01)
[2024-05-19] MEDS: diltiaZEM CD 120 MG CAPSULE PO SCH (10:01)
--- NOTE | 2024-05-19 11:50 | PROVIDER PROGRESS NOTE ---
Subjective Subjective Subjective: Patient is a 63 year old female wit a history of cirrhosis secondary to JACKSON who presented due to altered mentation due to hepatic encephalopathy. She was intubated for airway protection; she was extubated 05/17. Of note, patient was admitted to [facility] from 03/16 - 03/31 for similar reason. At that time, she was also intubated for airway protection. There were concerns for myxedema coma, but endocrinology was consulted, and this was ruled out. Lactulose was started, and her mental status improved there as well. At that time, she also had dysphagia post extubation. However, this resolved, and she was discharged home on a regular diet. Discharge medications: Protonix 40 mg twice daily, spironolactone 100 mg daily, diltiazem and 20 mg every 24 hours This morning, she is alert and oriented x 4. She is slow to respond but is responding appropriately. She passed her speech swallow this morning. PT/OT recommended SNF - she would like to discuss this with her . Current Medications Current Medications Current Medications: Current Medications Generic Name Dose Route Start Last Admin Trade Name Freq PRN Reason Stop Dose Admin Acetaminophen 640 mg 05/16/24 10:18 05/17/24 04:24 Acetaminophen 160 Mg/5 Ml Susp Udc NG 640 mg Q4HR PRN Administration Pain or Fever > 38C (100.4F) Carboxymethylcellulose 1 drops 05/18/24 06:57 05/18/24 07:02 Carboxymethylcellulose Ophth Drops EACHEYE 1 drops PRN PRN Administration Dry Eye Diltiazem HCl 120 mg 05/19/24 09:00 05/19/24 10:01 Diltiazem Cd 120 Mg Capsule PO 120 mg DAILY LUZMARIA Administration Heparin Sodium (Porcine) 5,000 unit 05/15/24 09:00 05/19/24 10:01 Heparin 5,000 Unit/Ml Vial SUBQ 5,000 unit BID LUZMARIA Administration Lactulose 20 gm 05/19/24 14:00 Lactulose 10 Gm /15 Ml Udc PO TID LUZMARIA Pantoprazole Sodium 40 mg 05/19/24 09:00 05/19/24 10:01 Pantoprazole 40 Mg Vial IVP 40 mg BID LUZMARIA Administration Sodium Chloride 10 ml 05/15/24 08:58 05/18/24 21:02 Sodium Chloride Flush 0.9% 10 Ml Syringe IVP 10 ml PRN PRN Administration NEEDED PER PROVIDER ORDERS Sodium Chloride 10 ml 05/15/24 09:00 05/19/24 10:01 Sodium Chloride Flush 0.9% 10 Ml Syringe IVP 10 ml 0100,0900,1700 LUZMARIA Administration Spironolactone 100 mg 05/19/24 09:00 05/19/24 10:00 Spironolactone 25 Mg Tablet PO 100 mg DAILY LUZMARIA Administration Objective Vital Signs/Intake & Output Reviewed Vital Signs: Yes Vital Signs: Vital Signs x48h Temp Pulse Resp BP Pulse Ox 05/19/24 08:53 99.0 F 82 16 140/74 H 98 Intake & Output: Intake & Output 05/17/24 05/18/24 05/19/24 05/20/24 05:59 05:59 05:59 05:59 Intake Total 3521 / 3521 873 / 873 100 / 100 50 / 50 Output Total 1379 / 1379 3305 / 3305 1140 / 1140 Balance 2142 / 2142 -2432 / -2432 -1040 / -1040 Weight (kg) 55.5 kg 53.5 kg Objective General Appearance: positive No acute distress and Alert Eyes Bilateral: positive Normal inspection, PERRL and EOMI ENT: positive ENT inspection nml and Pharynx nml Neck: positive Nml inspection and Trachea midline Respiratory: positive Chest non-tender, No respiratory distress and Breath sounds nml Cardiovascular: positive Regular rate & rhythm and No murmur Abdomen: positive Non-tender, No organomegaly and No distention Skin: positive Color nml, No rash and Warm Extremities: positive Full ROM Neurologic/Psychiatric: positive Oriented x3, Mood/affect nml and Weakness Lab Results 05/19/24 04:34 05/19/24 04:34 Other Labs: Lab Results x24hrs 05/19/24 05/19/24 05/19/24 Range/Units 05:39 04:34 00:22 WBC 7.0 (4.8-10.8) x10^3/uL RBC 4.65 (4.20-5.40) 10^6/uL Hgb 13.0 (12.0-16.0) g/dL Hct 41.3 (37.0-47.0) % MCV 88.8 (81.0-99.0) fL MCH 28.0 (27.0-31.0) pg MCHC 31.5 L (32.0-36.0) g/dL RDW 16.1 H (12.0-15.0) % Plt Count 144 (130-450) 10^3/uL MPV 11.6 H (7.9-10.8) fL Neut # (Auto) 3.0 (1.5-6.6) 10^3/uL Lymph # (Auto) 1.8 (1.5-3.5) 10^3/uL [place] # (Auto) 1.3 H (0.0-1.0) 10^3/uL Eos # (Auto) 0.8 H (0.0-0.7) 10^3/uL Baso # (Auto) 0.1 (0.0-0.1) 10^3/uL Absolute Nucleated RBC 0.00 x10^3/uL Nucleated RBC % 0.0 /100WBC Sodium 141 (135-145) mmol/L Potassium 4.0 (3.5-4.5) mmol/L Chloride 109 (101-111) mmol/L Carbon Dioxide 27 (21-32) mmol/L Anion Gap 5.0 L (6-13) BUN 23 H (6-20) mg/dL Creatinine 0.9 (0.6-1.3) mg/dL Estimated GFR (MDRD) 63 L (>89) Glucose 65 L (74-104) mg/dL POC Whole Bld Glucose 131 128 (70-100) mg/dL Calcium 9.3 (8.5-10.3) mg/dL Total Bilirubin 1.4 H (0.2-1.0) mg/dL AST 30 (10-42) IU/L ALT 16 (10-60) IU/L Alkaline Phosphatase 63 (42-121) IU/L Total Protein 6.8 (6.4-8.9) g/dL Albumin 2.8 L (3.2-5.5) g/dL Globulin 4.0 (2.1-4.2) g/dL Albumin/Globulin Ratio 0.7 L (1.0-2.2) 05/18/24 Range/Units 17:58 WBC (4.8-10.8) x10^3/uL RBC (4.20-5.40) 10^6/uL Hgb (12.0-16.0) g/dL Hct (37.0-47.0) % MCV (81.0-99.0) fL MCH (27.0-31.0) pg MCHC (32.0-36.0) g/dL RDW (12.0-15.0) % Plt Count (130-450) 10^3/uL MPV (7.9-10.8) fL Neut # (Auto) (1.5-6.6) 10^3/uL Lymph # (Auto) (1.5-3.5) 10^3/uL [place] # (Auto) (0.0-1.0) 10^3/uL Eos # (Auto) (0.0-0.7) 10^3/uL Baso # (Auto) (0.0-0.1) 10^3/uL Absolute Nucleated RBC x10^3/uL Nucleated RBC % /100WBC Sodium (135-145) mmol/L Potassium (3.5-4.5) mmol/L Chloride (101-111) mmol/L Carbon Dioxide (21-32) mmol/L Anion Gap (6-13) BUN (6-20) mg/dL Creatinine (0.6-1.3) mg/dL Estimated GFR (MDRD) (>89) Glucose (74-104) mg/dL POC Whole Bld Glucose 127 (70-100) mg/dL Calcium (8.5-10.3) mg/dL Total Bilirubin (0.2-1.0) mg/dL AST (10-42) IU/L ALT (10-60) IU/L Alkaline Phosphatase (42-121) IU/L Total Protein (6.4-8.9) g/dL Albumin (3.2-5.5) g/dL Globulin (2.1-4.2) g/dL Albumin/Globulin Ratio (1.0-2.2) Diagnostic Imaging Diagnostic Imaging Results: positive Final report reviewed Assessment/Plan Problem List (1) Hepatic encephalopathy: Impression: Resolved. Patient presented with altered mentation requiring intubation. Extubated on 05/17. Ammonia level 222 on admission, repeat was 71.1. Continue lactulose four times a day. (2) Dysphagia: Impression: Resolved. Patient placed on regular diet today. Previous discharge summary noted from 04/08 at [place], patient had dysphagia postextubation at that hospital as well. However, this resolved and patient was sent home on a regular diet. Qualifiers: Dysphagia type: oropharyngeal phase Qualified Code(s): R13.12 - Dysphagia, oropharyngeal phase (3) Acute nontraumatic kidney injury: Impression: Resolved. Patient is supposed to be on spironolactone and torsemide in the outpatient setting. Will restart here. (4) Hypothyroidism: Impression: Patient's TSH was 0.87 on admission. At last hospitalization, there were concerns for possible myxedema coma. Unlikely at this time. Home levothyroxine was held as patient cannot swallow pills; re-ordered this AM. Qualifiers: Hypothyroidism type: unspecified Qualified Code(s): E03.9 - Hypothyroidism, unspecified (5) Community acquired pneumonia: Impression: Possible bilateral lower lobe opacities. Completed 3 days of azithromycin. Continue 2 more days of IV Rocephin for community-acquired pneumonia. Qualifiers: Laterality: unspecified laterality Qualified Code(s): J18.9 - Pneumonia, unspecified organism (6) Hyperkalemia: Impression: Resolved. Continue torsemide. Continue to monitor. (7) Hyperammonemia: Impression: Resolved; continue lactulose. (8) Paroxysmal atrial fibrillation: Impression: Patient on diltiazem in the outpatient setting. Not on any anticoagulation as has a history of GI bleed, as well as esophageal varices. Continued today. (9) Ventilatory failure: Impression: Resolved. Extubated on room air.
[2024-05-19] MEDS: LACTULOSE 10 GM /15 ML UDC PO SCH (14:04)
[2024-05-19] MEDS: LEVOTHYROXINE 75 MCG TABLET PO SCH (14:42)
[2024-05-19] MEDS: TORSEMIDE 20 MG TABLET PO SCH (14:42)
--- NOTE | 2024-05-19 16:13 | OT Plan of Care ---
OT Inpatient POC Diagnosis DIAGNOSIS Diagnosis: Hepatic Encephalopathy, AMS Chief Complaint: General weakness Onset of Chief Complaint: CLOTH COLORS EXAMINER MEDICAL/SURGICAL HISTORY Medical History (Updated 05/18/24 @ 11:33 by Nathalie Velasquez MD) Rheumatoid arthritis, unspecified (11/07/23) Bilateral leg edema (11/07/23) Fasting hyperglycemia (11/07/23) Acute respiratory failure 03/2024, secondary to hepatic encephalopathy, req intubation Ascites Hyperlipidemia Atrial fibrillation dx 2022 in [facility] Heart failure with preserved ejection fraction dx 2021 in setting of anemia from acute blood loss due to gastritis Hx of upper gastrointestinal hemorrhage Anemia Esophageal varices Surgical History (Updated 04/23/24 @ 15:00 by Roxann Hoffmann, RN, BSN) Adverse anesthesia outcome difficulty breathing after anesthesia from EGD History of colonoscopy History of esophagogastroduodenoscopy (EGD) Bilateral cataracts Hx of cholecystectomy 07/2022 Assessment and Goals ASSESSMENT Assessment: Pt is a 63 y/o woman adm with Hepatic Encephalopathy, AMS requiring intubation 2/2 respiratory failure. Extubated in ICU and tx to MS unit. Pt A&Ox4, willing to participate with therapy. Follows all commands appropriately. Performed supine to sit, sit to stand, and ambulation to/from bathroom 15ft using 2WW MIN A - Required cues for safety and 2WW management in small space negotiation - noted LOB with increased distractions within environment. Currently MIN A ADL's with full set up and increased time 2/2 fatigue. Overall presenting with decreased endurance, activity tolerance, and ADL status. Will benefit from cont OT services during acute stay. Rec d/c to SNF for further progression of INDP and safety. -Activities of Daily Living Improve Upper Extremity Dressing to:: Modified Independent Improve Lower Extremity Dressing to:: Modified Independent Improve Grooming/Hygiene to:: Modified Independent Improve Bathing to:: Modified Independent Improve Toileting to:: Modified Independent OT Inpatient Plan PLAN Treatment Frequency: 1x/day Duration: Until goals are met -Discharge Recommendations Discharge Location: Long Term Facility Transport Needs at Discharge: Wheelchair van
--- NOTE | 2024-05-19 18:03 | PT Plan of Care ---
Medical/Surgical Past History Past History Medical History (Updated 05/18/24 @ 11:33 by Nathalie Velasquez MD) Rheumatoid arthritis, unspecified (11/07/23) Bilateral leg edema (11/07/23) Fasting hyperglycemia (11/07/23) Acute respiratory failure 03/2024, secondary to hepatic encephalopathy, req intubation Ascites Hyperlipidemia Atrial fibrillation dx 2022 in [facility] Heart failure with preserved ejection fraction dx 2021 in setting of anemia from acute blood loss due to gastritis Hx of upper gastrointestinal hemorrhage Anemia Esophageal varices Surgical History (Updated 04/23/24 @ 15:00 by Roxann Hoffmann, RN, BSN) Adverse anesthesia outcome difficulty breathing after anesthesia from EGD History of colonoscopy History of esophagogastroduodenoscopy (EGD) Bilateral cataracts Hx of cholecystectomy 07/2022
--- NOTE | 2024-05-20 10:15 | Discharge Summary ---
"Discharge Summary Admit Date: 05/15/24 Discharge Date: 05/20/24 Discharging Provider: Dr. Nathalie Velasquez Discharge Facility Name: [facility] DIAGNOSES Admission Diagnoses: Hepatic encephalopathy Acute nontraumatic kidney injury Hypothyroidism Ventilatory failure Community-acquired pneumonia Hyperkalemia Metabolic dysfunction associated steatohepatitis Hyperammonemia Discharge Diagnoses with Status of Each Condition: Hepatic encephalopathyresolved. Patient presented with elevated ammonia, altered mentation requiring intubation. Extubated on 05/17. Continue lactulose on discharge. Dysphagiaresolved. Patient tolerating regular diet well. Acute nontraumatic kidney injuryresolved. Continue home spironolactone and torsemide. Hypothyroidismcontinue home levothyroxine. Hyperkalemiaresolved. Hyperammonemiaresolved, continue lactulose at home. Paroxysmal atrial fibrillationcontinue home diltiazem. Not on anticoagulation because of history of GI bleed, esophageal varices. Ventilatory failureresolved. Extubated, currently on room air. HPI History of Present Illness: Per Dr. Catalan: This is a 63-year-old female with a past medical history of MASH cirrhosis, hypothyroid and recurrent hepatic encephalopathy with elevated ammonia levels who presents to the ER intubated due to altered mental status. Per family, pt's mental status worsened over the last few days, associated with confusion and increased lethargy. Pt was unable to wake up this morning, EMS was called who intubated pt for airway protection. Niece does not think that pt is compliant with home lactulose meds. Labs are significant for a highly elevated NH4 and BUN level. Slight elevation in [place] and Cr. CT angio head/neck negative for any acute pathological issues. Chest x-ray indicates mild patchy infiltration within both lungs left within right mild cardiomegaly. KUB indicates gastric tube in the distal stomach. Pt is followed by Dr. Lance PERRY. Pt is on torsemide and spironolactone after failing lasix. 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 She was intubated for airway protection. Her ammonia level was high, and she was started on scheduled lactulose. Of note, patient was recently admitted to [facility] from 03/16 to 03/31 for similar reasons. She is noncompliant with her lactulose at home at times. Here, she required 2 days of intubation, and then was extubated on to room air. She had some dysphagia post extubation which resolved with time. She is now on a regular diet. She was restarted on her home medications including Lasix, torsemide, spironolactone. She was advised to continue her lactulose 3 times a day. She has an appointment with a hand nailer in June. She worked with physical therapy and Occupational Therapy, they recommended SNF. After discussion with her and her , they opted for this. She will be discharged to [facility] for further rehab. ALLERGIES Allergies Allergy/AdvReac Type Severity Reaction Status Date / Time amlodipine Allergy Edema Verified 05/17/24 11:42 lisinopril Allergy Unknown Verified 05/15/24 05:48 atenolol AdvReac Rash Verified 05/15/24 05:48 metoprolol AdvReac foot Verified 05/17/24 11:42 swelling MEDICATIONS Ambulatory Orders Medication Instructions Recorded Confirmed Handicap Placard #2 ea 04/23/24 04/23/24 lactulose 10 gram/15 mL oral 30 ml PO TID #946 mL 04/23/24 05/15/24 solution levothyroxine 75 mcg capsule 75 mcg PO QAM #90 caps 04/23/24 05/15/24 pantoprazole 40 mg tablet,delayed 40 mg PO BID #90 tabs 04/23/24 05/15/24 release spironolactone 100 mg tablet 100 mg PO QAM #90 tabs 04/23/24 05/15/24 torsemide 20 mg tablet (Soaanz) 20 mg PO QDAY #90 tabs 04/23/24 05/15/24 diltiazem HCl 120 mg capsule,24 120 mg PO DAILY 05/17/24 05/17/24 hr,extended release PHYSICAL EXAM AT DISCHARGE General Appearance: positive No acute distress and Alert; negative Anxious or Lethargic Eyes Bilateral: positive Normal inspection, PERRL and EOMI ENT: positive ENT inspection nml, Pharynx nml and No signs of dehydration Neck: positive Nml inspection, Thyroid nml, No JVD and Trachea midline Respiratory: positive Chest non-tender, No respiratory distress and Breath sounds nml Cardiovascular: positive Regular rate & rhythm, No murmur and No gallop Peripheral Pulses: positive 2+ Abdomen: positive Non-tender, No organomegaly, Nml bowel sounds and No distention Back: positive Nml inspection; negative CVA tenderness (R) or CVA tenderness (L) Skin: positive Color nml, No rash, Warm and Dry Extremities: positive Non-tender, Full ROM, Nml appearance and No pedal edema Neurologic/Psychiatric: positive Oriented x3, Sensation nml and Mood/affect nml; negative Facial droop LABS 05/19/24 04:34 05/19/24 04:34 DIAGNOSTIC IMAGING Diagnostic Imaging Results: Final report reviewed QUALITY (Female Hip Fx Only) Was patient sent home on osteoporosis medication?: No FOLLOW UP Follow Up: Follow up with hand nailer, primary care physician, GI doctor. TIME SPENT Time Spent in Discharge (Minutes): 30 Discharge Plan Discharge Patient Disposition: SNF DC/Xfer Condition: Stable Prescriptions: Continued diltiazem HCl 120 mg capsule,extended release 24 hr 120 mg PO DAILY (DME) Handicap Placard Unit See Rx Instructions .MEDSUPPLY Qty: 2 0RF Rx Instructions: Permanent Disabled Parking Permit. Cannot walk more than 200 feet without stopping to rest. lactulose 10 gram/15 mL solution 30 ml PO TID Qty: 946 12RF levothyroxine 75 mcg capsule 75 mcg PO QAM Qty: 90 1RF pantoprazole 40 mg tablet,delayed release (DR/EC) 40 mg PO BID Qty: 90 1RF spironolactone 100 mg tablet 100 mg PO QAM Qty: 90 1RF torsemide [Soaanz] 20 mg tablet 20 mg PO QDAY Qty: 90 1RF Activity Restrictions: Activity as Tolerated Diet: Regular Health Concerns: You came in initially because you were confused and altered. This was likely due to high levels of ammonia in your blood due to your liver disease. You are connected to the ventilator to help you breathe. Likely, we are able to take this off safely, and you are able to now breathe on your home. We treated you for a pneumonia while you were here. We continued your lactulose. It is very important that you keep taking this 3 times a day once you are discharged. This is the medication that will help clear this ammonia that makes your confusion worse now that you have this liver disease. We will also continue on your other home medications including torsemide and spironolactone, as well as Protonix. I understand that you already have an appointment with a hand nailer, or a liver doctor, in June. Please keep this appointment. Please also make an appointment with your primary care physician so they are updated about your plan of care. We are glad you are going to [facility] to help get you stronger before you go home. We are also glad you are feeling better. Thank you for allowing us take care of you. Assessment: 1. Take lactulose 3 times a day. 2. Follow-up with a hand nailer. 3. Follow-up with a primary care physician. 4. Take your torsemide, spironolactone, Protonix as prescribed. Print Language: Bahamian Patient Instructions: NAFLD Stand Alone Forms: SNF Discharge, PCP List"
[2024-05-20 10:30] VITALS: O2SAT 99
== END 2024-05-20 14:30 | DRG 441 ==
LOC: ED 05:30 → ICU 09:37 → SUATTDRO 09:37 → ICU 11:01 → MS2 05-18 22:10
PROVIDERS: ADMIT Internal Medicine; ATTEND Internal Medicine
DX: I48.0 Paroxysmal atrial fibrillation; E87.1 Hypo-osmolality and hyponatremia; K74.60 Unspecified cirrhosis of liver; N17.9 Acute kidney failure, unspecified; J18.9 Pneumonia, unspecified organism; E86.0 Dehydration; R13.12 Dysphagia, oropharyngeal phase; I50.30 Unspecified diastolic (congestive) heart failure; T47.3X6A Underdosing of saline and osmotic laxatives, initial encounter; K76.82 Hepatic encephalopathy; K75.81 Nonalcoholic steatohepatitis (NASH); Z91.81 History of falling; E03.9 Hypothyroidism, unspecified; Y92.009 Unspecified place in unspecified non-institutional (private) residence as the place of occurrence of the external cause; Z91.128 Patient's intentional underdosing of medication regimen for other reason; R41.82 Altered mental status, unspecified; E72.20 Disorder of urea cycle metabolism, unspecified; I48.91 Unspecified atrial fibrillation; J96.90 Respiratory failure, unspecified, unspecified whether with hypoxia or hypercapnia; E87.5 Hyperkalemia

== ENCOUNTER 2024-10-22 23:30 | Observation (INO) ==
--- OUTSIDE RECORDS SUMMARY | 2024-10-22 23:37 | EXTERNAL MEDICAL SUMMARY RPT | Continuity of Care Document ---
Author Organization [facility] Address [address] [place] [id number] Phone Problems date description facility 2024-08-18 00:02 Paroxysmal atrial fibrillation [facility] 2024-08-18 00:02 Chronic diastolic (congestive) heart failure [facility] 2024-08-18 00:02 Esophageal varices with bleedin g [facility] 2024-08-18 00:02 Unspecified cirrhosis of liver [facility] 2024-08-18 00:02 Nonalcoholic steatohepatitis (N TORRIE) [facility] 2024-08-18 00:02 Hepatic encephalopathy [facility] 2024-08-18 00:02 Rheumatoid arthritis, unspecifi ed [facility] 2024-08-18 00:02 Personal history of other endocrine, nutritional and metabolic disease [facility] 2024-08-26 07:50 Chronic diastolic (congestive) heart failure [facility] 2024-08-26 07:50 Chronic kidney disease, stage 2 (mild) [facility] 2024-08-26 07:50 Other specified abno rmal immunological findings in serum [facility] 2024-08-26 07:50 Personal history of other disea ses of urinary system [facility] 2024-08-27 00:04 Chronic diastolic (congestive) heart failure [facility] 2024-08-27 00:04 Chronic kidney disease, stage 2 (mild) [facility] 2024-08-27 00:04 Other specified abno rmal immunological findings in serum [facility] 2024-08-27 00:04 Personal history of other disea ses of urinary system [facility] 2024-08-31 09:47 Chronic kidney disease, stage 2 (mild) [facility] 2024-09-08 07:12 Chronic diastolic (congestive) heart failure [facility] 2024-09-08 07:14 Hyperuricemia withou t signs of inflammatory arthritis and tophaceous disease [email or web address] 07:14 Chronic diastolic (congestive) heart failure [facility] 2024-09-08 07:14 Acute kidney failure, unspecifi ed [facility] 2024-09-09 00:05 Hyperuricemia withou t signs of inflammatory arthritis and tophaceous disease [facility] 2024-09-09 00:05 Chronic diastolic (congestive) heart failure [facility] 2024-09-09 00:05 Acute kidney failure, unspecifi ed [facility] 2024-09-09 12:06 Chronic diastolic (congestive) heart failure [facility] 2024-09-15 09:23 Hyperuricemia withou t signs of inflammatory arthritis and tophaceous disease [email or web address] 2024-09-15 09:23 Acute kidney failure, unspecifi ed [facility] 2024-09-15 09:27 Hyperuricemia withou t signs of inflammatory arthritis and tophaceous disease [email or web address] 2024-09-15 09:27 Acute kidney failure, unspecifi ed [email or web address] 2024-09-16 00:04 Hyperuricemia withou t signs of inflammatory arthritis and tophaceous disease [email or web address] 2024-09-16 00:04 Acute kidney failure, unspecifi ed [email or web address] 2024-09-20 06:49 Acute kidney failure, unspecifi ed [email or web address] 2024-09-29 09:24 Hyperuricemia withou t signs of inflammatory arthritis and tophaceous disease [facility] 2024-09-29 09:24 Acute kidney failure, unspecifi ed [email or web address] 2024-09-30 00:04 Hyperuricemia withou t signs of inflammatory arthritis and tophaceous disease [email or web address] 2024-09-30 00:04 Acute kidney failure, unspecifi ed [email or web address] 2024-09-30 08:53 Acute kidney failure, unspecifi ed [email or web address] 2024-10-19 14:03 Unspecified cirrhosis of liver [email or web address] 2024-10-19 14:57 Chronic diastolic (congestive) heart failure [facility] 14:57 Unspecified cirrhosis of liver [facility] 2024-10-19 14:57 Nonalcoholic steatohepatitis (N TORRIE) [facility] 2024-10[facility] 14:57 Acute kidney failure, unspecifi ed [facility] Results/Labs test date facility value unit notes Result panel 1 NUCLEATED RED BLOOD CELLS AUTO 2024-08-26 08:02 [facility] 0.0 /100wbc (missing) NRBC ABSOLUTE COUNT (AUTO) 2024-08-26 08:02 [facility] 0.00 x10 3/ul (missing) BASOPHILS # (AUTO) 2024-08-26 08:02 [facility] 0.1 10 3/ul (missing) ALBUMIN/GLOBULIN RATIO 2024-08-26 08:02 [facility] 0.8 (missing) (missing) EOSINOPHILS # (AUTO) 2024-08-26 08:02 [facility] 1.0 10 3/ul (missing) MONOCYTES # (AUTO) 2024-08-26 08:02 [facility] 1.3 10 3/ul (missing) BILIRUBIN,TOTAL 2024-08-26 08:02 [facility] 1.7 mg /dl As of December 2022 testing method has changed, this may include reference ranges. MEAN PLATELET VOLUME 2024-08-26 08:02 [facility] 10.9 fl (missing) ALKALINE PHOSPHATASE 2024-08-26 08:02 [facility]/l As of December 2022 testing method has changed, this may include reference ranges. SODIUM 2024-08-26 08:02 [facility] 131 mmol/l Unknown As of December 2022 testing method has changed, this may include reference ranges. HGB - HEMOGLOBIN 2024-08-26 08:02 [facility] 14.2 g /dl (missing) ESTIMATED AVERAGE GLUCOSE 2024-08-26 08:02 [facility] 148 mg/dl (missing) GLUCOSE 2024-08-26 08:02 [facility] 148 mg/dl As of December 2022 testing method has changed, this may include reference ranges. RED CELL DISTRIBUTION WIDTH 2024-08-26 08:02 [facility] 15.3 % (missing) URIC ACID 2024-08-26 08:02 [facility] 17.9 mg/dl Unknown As of December 2022 testing method has changed, this may include reference ranges. PLT - PLATELET COUNT 2024-08-26 08:02 [facility] 179 10 3/ul (missing) URIC ACID 2024-08-26 08:02 [facility] 18.0 mg/dl As of December 2022 testing method has changed, this may include reference ranges. CREATININE 2024-08-26 08:02 [facility] 2.1 mg/dl As of December 2022 testing method has changed, this may include reference ranges. THYROID STIMULATING HORMONE 2024-08-26 08:02 [facility] 2.11 uiu/ml Unknown MAGNESIUM 2024-08-26 08:02 [facility] 2.2 mg/dl As of December 2022 testing method has changed, this may include reference ranges. MAGNESIUM 2024-08-26 08:02 [facility] 2.2 mg/dl Unknown As of December 2022 testing method has changed, this may include reference ranges. LYMPHOCYTES # (AUTO) 2024-08-26 08:02 [facility] 2.4 10 3/ul (missing) GFR - MDRD 2024-08-26 08:02 [facility] 24 (pedro cherry) Social History date description facility
[2024-10-22 23:54] LABS: BASOPHILS % (AUTO) 0.6 %; EOSINOPHILS % (AUTO) 0.3 %; HCT - HEMATOCRIT 41.4 % (37.0-47.0); HGB - HEMOGLOBIN 13.6 g/dL (12.0-16.0); LYMPHOCYTES # (AUTO) 0.7 10^3/uL (1.5-3.5); LYMPHOCYTES % (AUTO) 11.3 %; MEAN CORPUSCULAR HGB CONC 32.9 g/dL (32.0-36.0); MEAN CORPUSCULAR VOLUME 91.4 fL (81.0-99.0); MEAN PLATELET VOLUME 10.8 fL (7.9-10.8); MONOCYTES # (AUTO) 0.8 10^3/uL (0.0-1.0); MONOCYTES % (AUTO) 11.9 %; NEUTROPHILS # (AUTO) 4.8 10^3/uL (1.5-6.6); PLT - PLATELET COUNT 171 10^3/uL (130-450); RED BLOOD COUNT 4.53 10^6/uL (4.20-5.40); RED CELL DISTRIBUTION WIDTH 15.6 % (12.0-15.0); WHITE BLOOD COUNT 6.4 x10^3/uL (4.8-10.8)
[2024-10-23 00:14] LABS: ALBUMIN 3.3 g/dL (3.2-5.5); ALBUMIN/GLOBULIN RATIO 0.8 (1.0-2.2); BILIRUBIN,TOTAL 1.4 mg/dL (0.2-1.0); CALCIUM 9.2 mg/dL (8.5-10.3); CREATININE 2.2 mg/dL (0.6-1.3); POTASSIUM 4.7 mmol/L (3.5-4.5); TOTAL PROTEIN 7.5 g/dL (6.4-8.9)
[2024-10-23 00:24] LABS: THYROID STIMULATING HORMONE 1.38 uIU/mL (0.34-5.60)
--- NOTE | 2024-10-23 01:46 | ED Physician Documentation ---
PD HPI ALTERED MENTAL STATUS Stated complaint Stated Complaint: DEC LOC Chief complaint Chief Complaint: Neuro Additional information Additional information: DENITA. HPI from EMS, patient spouse (who was in the ED at patient's bedside). Patient is unable to contribute to HPI/ROS due to AMS. Patient has hepatorenal syndrome secondary to MASH. Patient's says that the patient prepared her own lunch the yesterday afternoon (10/22/2024), but shortly after eating lunch, she had nausea with several episodes of vomiting. He says that she then laid down and took a nap. Several hours later, patient's woke her up so that she can take her third dose of lactulose for the day (patient takes lactulose TID). However, at that time he noted patient was significantly confused. Per , patient's baseline mental status is AAO x 3, but that she has had episodic AMS that has manifested as varying degrees of confusion and decreasing levels of responsiveness in the past requiring previous ED visits; says that this has been typically attributed to high ammonia levels. The patient was too confused to follow commands including taking her p.o. lactulose. was planning on driving her to the ED but she was so confused he could not get her to follow commands to get her into the car and he thus called 911. FSBS per EMS 218. Meds/Allgy Home Medications Ambulatory Orders Medication Instructions Recorded Confirmed Handicap Vianneyronnie #2 ea 04/23/24 09/06/24 lactulose 10 gram/15 mL oral 30 ml PO TID #946 mL 02/0610/19/24 solution spironolactone 100 mg tablet 100 mg PO QAM #90 tabs 10/19/24 torsemide 20 mg tablet (Soaanz) 20 mg PO QDAY #90 tabs 04/23/24 10/19/24 diltiazem HCl 120 mg capsule,24 120 mg PO DAILY 10/19/24 hr,extended release allopurinol 100 mg tablet 200 mg PO QDAY 09/06/2412/08 levothyroxine 75 mcg capsule 75 mcg PO QAM #90 caps 10/19/24 pantoprazole 40 mg tablet,delayed 40 mg PO QDAY release Allergies Allergies Allergy/AdvReac Type Severity Reaction Status Date / Time amlodipine Allergy Edema Verified 08/17/24 15:37 lisinopril Allergy Unknown Verified 08/17/24 15:37 atenolol AdvReac Rash Verified 08/17/24 15:37 metoprolol AdvReac foot Verified 08/17/24 15:37 swelling PFSH Active Problems All Active Problems (Updated 10/23/24 @ 08:20 by Eloy Guzman MD) Hyperammonemia (Acute) Altered mental status (Acute) Heart failure with preserved ejection fraction (Acute) Bilateral leg edema (Acute) Esophageal varices (Acute) Acute nontraumatic kidney injury (Acute) Paroxysmal atrial fibrillation (Acute) Dysphagia (Acute) Metabolic dysfunction-associated steatohepatitis (MASH) (Acute) 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 (Acute) Essential (primary) hypertension (Acute) Hypothyroidism (Chronic) Medical History Medical History (Updated 10/23/24 @ 08:20 by Eloy Guzman MD) History of myxedema coma Anemia Bleeding gums Hepatic encephalopathy Rheumatoid arthritis, unspecified (11/07/23) Bilateral leg edema (11/07/23) Fasting hyperglycemia (11/07/23) Ascites Hx of upper gastrointestinal hemorrhage Anemia Surgical History Surgical History (Updated 04/23/24 @ 15:00 by Roxann Hoffmann, RN, BSN) Adverse anesthesia outcome difficulty breathing after anesthesia from EGD History of colonoscopy History of esophagogastroduodenoscopy (EGD) Bilateral cataracts Hx of cholecystectomy 07/2022 Social History Social History (Updated 08/17/24 @ 15:40 by VIV GEE LPN) Smoking Status: Never smoker Second hand tobacco smoke exposure: No Do you dip or chew tobacco?: No Do you vape?: No Living arrangement: At home Marital Status: Living Condition: With spouse/s.o. Support Person: Yes Relationship: Spouse Level: Independent Do you feel safe in your home environment?: Yes Suffered physical, verbal, emotional, or financial abuse?: No History of Abuse: No ETOH Use: None Substance Use: denies use POLST Patient has POLST: No Exam Exam Vital Signs: Vital Signs x48h Temp Pulse Resp BP Pulse Ox 10/23/24 01:07 78 20 119/59 L 99 10/23/24 01:00 76 22 137/99 H 99 10/23/24 00:45 76 22 129/87 99 10/23/24 00:30 78 22 133/72 H 99 10/23/24 00:15 71 22 119/67 99 10/23/24 00:06 78 20 127/89 99 10/22/24 23:51 88 22 133/67 H 99 10/22/24 23:42 36.7 C 91 2 L 128/58 L 99 Constitutional normal general appearance and level of alertness abnormal (obtunded) Eyes PERRL Respiratory breath sounds equal bilaterally, normal respiratory effort and clear to auscultation bilaterally Cardiovascular normal heart rate noted, regular rhythm noted and no murmur Gastrointestinal abdomen normal to inspection, abdomen soft to palpation, nontender to palpation, nondistended and normoactive bowel sounds Skin skin color normal Results Vitals Vitals: Vital Signs - 24 hr 10/22/24 23:42 10/22/24 23:51 10/22/24 23:54 Temperature 36.7 C Temperature Source Tympanic Pulse Rate 91 88 Respiratory Rate 2 L 22 Blood Pressure 128/58 L 133/67 H O2 Saturation 99 99 Oxygen Delivery Method Room Air O2 Source Room air Room air Pain Intensity 0 10/23/24 00:06 10/23/24 00:15 10/23/24 00:30 Temperature Temperature Source Pulse Rate 78 71 78 Respiratory Rate 20 22 22 Blood Pressure 127/89 119/67 133/72 H O2 Saturation 99 99 99 Oxygen Delivery Method O2 Source Room air Room air Room air Pain Intensity 10/23/24 00:45 10/23/24 01:00 10/23/24 01:07 Temperature Temperature Source Pulse Rate 76 76 78 Respiratory Rate 22 22 20 Blood Pressure 129/87 137/99 H 119/59 L O2 Saturation 99 99 99 Oxygen Delivery Method O2 Source Room air Room air Room air Pain Intensity Oxygen O2 Source Room air Labs Labs: Laboratory Tests 10/22/24 23:46 WBC 6.4 RBC 4.53 Hgb 13.6 Hct 41.4 MCV 91.4 MCH 30.0 MCHC 32.9 RDW 15.6 H Plt Count 171 MPV 10.8 Neut # (Auto) 4.8 Lymph # (Auto) 0.7 L [place] # (Auto) 0.8 Eos # (Auto) 0.0 Baso # (Auto) 0.0 Absolute Nucleated RBC 0.00 Nucleated RBC % 0.0 Sodium 134 L Potassium 4.7 H Chloride 100 L Carbon Dioxide 24 Anion Gap 10.0 BUN 34 H Creatinine 2.2 H Estimated GFR (MDRD) 22 L Glucose 237 H Calcium 9.2 Total Bilirubin 1.4 H AST 65 H ALT 42 Alkaline Phosphatase 121 Ammonia 229.3 H* Total Protein 7.5 Albumin 3.3 Globulin 4.2 Albumin/Globulin Ratio 0.8 L Lipase 136 H TSH 1.38 PD Medical Decision Making ED course Complexity details: reviewed old records, reviewed results, re-evaluated patient, considered differential and d/w family ED course: Ammonia level to 29. Bilirubin is mildly elevated (1.4) with minimally elevated AST (65), normal ALT. BUN 34, creatinine 2.2. Most recent creatinine was 1.0 on 09/29/24, but patient has had previous similar results including creatinine 2.1 on 08/26/24 (outpatient draw); says she sees a manager wind for this. I discussed this case with Dr. Ortiz, GI on-call at [facility] (patient's automobile salesman is Dr. Lucas at [facility]). Dr. Ortiz says patient is appropriate for admission to [facility]. Patient is given 10 grams lactulose PO early in stay as she was starting to follow some simple commands including drinking the lactulose, subsequently given another 10 grams lactulose PO. At the end of my shift she continued to exhibit improvement, becoming more awake, alert, and responsive, conversant but still confused, oriented to self only. I discussed this case with Dr. Velasquez ([facility] hospitalist), accepts to [facility] hospitalist service Discharge Plan Discharge Patient Disposition: ED Place in Observation Condition: Stable Clinical Impression: Altered mental status, Metabolic dysfunction-associated steatohepatitis (MASH), Hyperammonemia
[2024-10-23] MEDS: LACTULOSE 10 GM /15 ML UDC PO STA ×2 (02:49→05:34)
[2024-10-23] MEDS: SODIUM CHLORIDE 0.9% 500 ML IV STA (02:54)
[2024-10-23 07:28] LABS: CALCIUM 9.1 mg/dL (8.5-10.3); CREATININE 1.7 mg/dL (0.6-1.3); POTASSIUM 3.7 mmol/L (3.5-4.5)
--- NOTE | 2024-10-23 08:05 | HISTORY & PHYSICAL EXAMINATION ---
History of Present Illness Admitted From Admitted From:: Home History Obtained From Records Reviewed: EMR History obtained from: Patient Exam Limitations: Slow to respond History of Present Illness HPI Comment/Other: Patient is a 64-year-old female with a history of Jackson who presents with confusion, altered mentation. She does not recall the events of yesterday, but states that she "felt sick." When asked to elaborate, she states that she was confused. She denies any fevers, chills, abdominal pain, diarrhea. She does think that she missed a few doses of her lactulose. She denies any dysuria, urinary incontinence, urinary urgency. She does not feel like she is holding onto any water at this time. She is unsure if she has followed up with her ingredient specialist or cpas recently. She is alert and oriented x 4, but at times slow to respond. In the ED, she was vitally stable. Her blood pressure was 127 or 89, she is satting 99% on room air, respiratory rate was 20, heart rate was 78, and she was afebrile. Lab work was reviewedher white count was within normal limits. Her creatinine initially was 2.2, and it improved to 1.7. Appears her baseline is anywhere between 1-1.7. Her glucose was slightly elevated at 127-123. Her uric acid was within normal limits. Her bilirubin was slightly elevated at 1.1. Her AST was 65, which is around her baseline. Her ammonia was elevated at 229, and improved to 100 with 1 dose of lactulose. Her lipase was within normal limits. Her TSH was also checked, and it was 1.38. UA was negative for any acute infection. Head CT was completed which showed no acute pathology. Patient was admitted for acute metabolic encephalopathy. Meds/Allgy Home Medications Ambulatory Orders Medication Instructions Recorded Confirmed Handicap Vianneyronnie #2 ea 04/23/24 09/06/24 lactulose 10 gram/15 mL oral 30 ml PO TID #946 mL 02/0610/23/24 solution spironolactone 100 mg tablet 100 mg PO QAM #90 tabs 10/23/24 torsemide 20 mg tablet (Soaanz) 20 mg PO QDAY #90 tabs 04/23/24 10/23/24 diltiazem HCl 120 mg capsule,24 120 mg PO DAILY 10/23/24 hr,extended release allopurinol 100 mg tablet 200 mg PO QDAY 09/06/2410/14 levothyroxine 75 mcg capsule 75 mcg PO QAM #90 caps 10/23/24 pantoprazole 40 mg tablet,delayed 40 mg PO QDAY 10/23/24 release Allergies Allergies Allergy/AdvReac Type Severity Reaction Status Date / Time amlodipine Allergy Edema Verified 08/17/24 15:37 lisinopril Allergy Unknown Verified 08/17/24 15:37 atenolol AdvReac Rash Verified 08/17/24 15:37 metoprolol AdvReac foot Verified 08/17/24 15:37 swelling PFSH Active Problems All Active Problems Hyperammonemia (Acute) Altered mental status (Acute) Heart failure with preserved ejection fraction (Acute) Bilateral leg edema (Acute) Esophageal varices (Acute) Acute nontraumatic kidney injury (Acute) Paroxysmal atrial fibrillation (Acute) Dysphagia (Acute) Metabolic dysfunction-associated steatohepatitis (MASH) (Acute) 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 (Acute) Essential (primary) hypertension (Acute) Hypothyroidism (Chronic) Medical History Medical History History of myxedema coma Anemia Bleeding gums Hepatic encephalopathy Rheumatoid arthritis, unspecified (11/07/23) Bilateral leg edema (11/07/23) Fasting hyperglycemia (11/07/23) Ascites Hx of upper gastrointestinal hemorrhage Anemia Surgical History Surgical History Adverse anesthesia outcome difficulty breathing after anesthesia from EGD History of colonoscopy History of esophagogastroduodenoscopy (EGD) Bilateral cataracts Hx of cholecystectomy 07/2022 Social History Social History Smoking Status: Never smoker Second hand tobacco smoke exposure: No Do you dip or chew tobacco?: No Do you vape?: No Living arrangement: At home Marital Status: Living Condition: With spouse/s.o. Support Person: Yes Relationship: Spouse Level: Independent Do you feel safe in your home environment?: Yes Suffered physical, verbal, emotional, or financial abuse?: No History of Abuse: No ETOH Use: None Substance Use: denies use POLST Patient has POLST: No POLST Status: Full Code Review of Systems Constitutional Denies: Fatigue, Fever, Chills, Malaise, Weakness or Poor appetite Eyes Denies: Pain, Irritation, Blurry vision, Vision loss, Diplopia or Eye discomfort Ears, nose, mouth, and throat Denies: Ear pain, Hearing loss, Tinnitus, Nose bleeds, Nasal discharge, Mouth lesions or Neck pain Cardiovascular Denies: Irregular heart rate, chest pain, palpitations, edema, Syncope or shortness of breath with exertion Respiratory Denies: Shortness of breath, Cough, Sputum production or Wheezing Gastrointestinal Denies: Abdominal pain, Abdominal distention, Nausea, Vomiting, Heartburn, Diarrhea or Constipation Genitourinary Denies: Painful urination, Urinary frequency or Urinary urgency Musculoskeletal Denies: Back pain, Neck pain, Extremity pain, Extremity swelling or Joint pain Integumentary/Breast Denies: Rash, Itching, Dryness, Redness or Skin pain Neurological Denies: Headache, General weakness, Weakness in extremities, Numbness in extremities, Abnormal gait or Dizziness Psychiatric Denies: Depression, Anxiety, Mood swings or Panic attacks Endocrine Denies: Excessive urination, Excessive thirst or Fatigue Hematologic/Lymphatic Denies: Anemia, Easy bruising or Easy bleeding Allergic/Immunologic Denies: Hives, Tongue swelling, Facial swelling or Wheezing Exam Exam Vital Signs: Vital Signs x48h Temp Pulse Resp BP Pulse Ox 10/23/24 07:31 96 18 136/68 H 100 10/23/24 06:00 98.6 F 101 H 18 104/50 L 99 10/23/24 05:08 95 22 140/63 H 99 Constitutional normal general appearance and no apparent distress HENMT normocephalic, head/scalp atraumatic and external ears normal Eyes PERRL and no scleral icterus Neck/C-Spine visual inspection normal and trachea midline Chest inspection of chest normal Respiratory breath sounds equal bilaterally and normal respiratory effort Cardiovascular normal heart rate noted and regular rhythm noted Gastrointestinal abdomen normal to inspection and abdomen soft to palpation Extremities normal to inspection and normal to palpation Neurology Patient intubated and sedated Skin skin color normal and no rash Conclusion/Plan Problem List (1) Hepatic encephalopathy: Plan: Reportedly, patient was altered, lethargic. She is improving at this time. She is now alert and oriented x 3. Likely attributed to hepatic encephalopathy, elevated ammonia levels. Continue lactulose 20 mg [address] head negative. TSH within normal limits. (2) Hyperammonemia: Plan: Continue lactulose as stated above. (3) Heart failure with preserved ejection fraction: Plan: Patient is well compensated at this time. Hold torsemide and spironolactone for one more day due to acute kidney injury. Will reintroduce one at a time tomorrow. Qualifiers: Heart failure chronicity: chronic Qualified Code(s): I50.32 - Chronic diastolic (congestive) heart failure (4) Acute nontraumatic kidney injury: Plan: Likely due to overdiuresis. Hold torsemide and spironolactone for one more day due to acute kidney injury. Will reintroduce one at a time tomorrow. (5) Paroxysmal atrial fibrillation: Plan: Continue home diltiazem. Patient is not on anticoagulation due to history of GI bleeds and known esophageal varices. (6) Metabolic dysfunction-associated steatohepatitis (MASH): Plan: Longstanding history of MASH. Patient follows with ingredient specialist, advised to follow-up closely in the outpatient setting on discharge. Rifaximin may be an option if the patient continues to be hyperammonemic despite adequate lactulose dosing and regular bowel movements. (7) Essential (primary) hypertension: Plan: Continue with diltiazem. Spironolactone and torsemide currently held due to acute kidney injury. (8) Hypothyroidism: Plan: Continue levothyroxine. Qualifiers: Hypothyroidism type: unspecified Qualified Code(s): E03.9 - Hypothyroidism, unspecified Lab Results Lab results reviewed: Yes 10/22/24 23:46 10/23/24 07:04 Diagnostic Imaging Results Diagnostic Imaging Results: positive Final report reviewed Core Measures Anticipated LOS I expect patient to be DC'd or transferred within 96 hours.: Yes Issues Hospital Issues and Management Plan: None anticipated DVT/VTE - Prophylaxis VTE/DVT Device ordered at admit?: Yes VTE/DVT Prophylaxis med ordered at admit?: No Not Ordered - Medical Reason: Contraindicated
[2024-10-23 08:34] LABS: BILIRUBIN,URINE NEGATIVE (NEGATIVE); CLARITY,URINE CLEAR (CLEAR); GLUCOSE, URINE (UA) NEGATIVE (NEGATIVE); KETONES,URINE (UA) NEGATIVE (NEGATIVE); LEUKOCYTE ESTERASE, URINE NEGATIVE (NEGATIVE); NITRITE,URINE NEGATIVE (NEGATIVE); OCCULT BLOOD,URINE NEGATIVE (NEGATIVE); PROTEIN,URINE NEGATIVE (NEGATIVE); UROBILINOGEN,URINE 0.2 (NORMAL) E.U./dL (NORMAL)
--- NOTE | 2024-10-23 08:48 | CT Report ---
PROCEDURE: CT Head WO INDICATIONS: AMS TECHNIQUE: Noncontrast 4.5 mm thick angled axial sections acquired from the foramen magnum to the vertex. For radiation dose reduction, the following was used: automated exposure control, adjustment of mA and/or kV according to patient size. COMPARISON: CT head without contrast 02/22/2024 FINDINGS: Image quality: Excellent. CSF spaces: Basal cisterns are patent. No extra-axial fluid collections. Ventricles are normal in size and shape. 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 Brain: No midline shift. No intracranial mass effect or hemorrhage. Prado- white matter interface is normal. Mild patchy periventricular white matter hypoattenuation, likely secondary to chronic microvascular ischemic changes. Nonspecific basal ganglia calcifications. Skull and face: Calvarium and visualized facial bones are intact, without suspicious lesions. Sinuses: Visualized sinuses and mastoids are clear. IMPRESSION: No acute intracranial pathology. Reviewed by: Aly Chiang MD on 10/23/2024 8:46 AM PDT Approved by: Aly Chiang MD on 10/23/2024 8:46 AM PDT Station ID: [id number]
[2024-10-23] MEDS ORDERED: ONDANSETRON 4 MG/2 ML VIAL IVP PRN (08:55)
[2024-10-23] MEDS ORDERED: SODIUM CHLORIDE FLUSH 0.9% 10 ML SYRINGE IVP PRN (08:55)
[2024-10-23] MEDS ORDERED: ONDANSETRON ODT 4 MG TABLET TL PRN (08:55)
[2024-10-23] MEDS: SODIUM CHLORIDE FLUSH 0.9% 10 ML SYRINGE IVP SCH (09:47)
--- NOTE | 2024-10-23 11:21 | PHARMACY PROGRESS NOTE ---
Best Possible Medication History Admit Date and Time: 10/23/24 [id number] Home Medications Medication Instructions Recorded Confirmed Type Handicap Placard #2 ea 04/23/24 09/06/24 Rx lactulose 10 gram/15 mL oral 30 ml PO TID #946 mL 02/0610/23/24 Rx solution spironolactone 100 mg tablet 100 mg PO QAM #90 tabs 10/23/24 Rx torsemide 20 mg tablet (Soaanz) 20 mg PO QDAY #90 tabs 04/23/24 10/23/24 Rx diltiazem HCl 120 mg capsule,24 120 mg PO DAILY 10/23/24 History hr,extended release allopurinol 100 mg tablet 200 mg PO QDAY 09/06/2410/14 History levothyroxine 75 mcg capsule 75 mcg PO QAM #90 caps 10/23/24 Rx pantoprazole 40 mg tablet,delayed 40 mg PO QDAY 10/23/24 History release Processed by: Pharmacy Medications reviewed in ED?: No Medication History completed: Yes Patient Interview: Pt unable to participate Secondary Source(s): Pharmacy records, Insurance records and Previous admit records [facility] Statement: As the person ultimately responsible for medication therapy, providers are able to order a medication from an existing home medication list in [facility] via the "Reconcile Routine" prior to Confirmation of that medication by it support specialist. Such practice is discouraged except when the physician, in their clinical judgment, deems that a medical need exists for a medication without regard to previous use.
[2024-10-23] MEDS ORDERED: LACTULOSE 10 GM /15 ML UDC PO SCH ×2 (14:00)
[2024-10-23] MEDS: LACTULOSE 10 GM/15 ML BOTTLE PO SCH (14:11)
[2024-10-23] MEDS: LEVOTHYROXINE 75 MCG TABLET PO SCH (14:12)
[2024-10-23] MEDS: diltiaZEM CD 120 MG CAPSULE PO SCH (18:45)
[2024-10-24 04:44] VITALS: TEMP 99.3
[2024-10-24 05:00] LABS: HCT - HEMATOCRIT 38.6 % (37.0-47.0); MEAN CORPUSCULAR HEMOGLOBIN 30.7 pg (27.0-31.0); MEAN CORPUSCULAR HGB CONC 33.7 g/dL (32.0-36.0); MEAN PLATELET VOLUME 10.5 fL (7.9-10.8); RED BLOOD COUNT 4.24 10^6/uL (4.20-5.40); WHITE BLOOD COUNT 8.5 x10^3/uL (4.8-10.8)
[2024-10-24 05:04] LABS: INR 1.1 (0.8-1.2)
[2024-10-24 05:19] LABS: ALBUMIN/GLOBULIN RATIO 0.8 (1.0-2.2); CALCIUM 9.1 mg/dL (8.5-10.3); CREATININE 1.3 mg/dL (0.6-1.3); MAGNESIUM 2.1 mg/dL (1.7-2.3); POTASSIUM 4.3 mmol/L (3.5-4.5); TOTAL PROTEIN 6.6 g/dL (6.4-8.9)
[2024-10-24] MEDS: PANTOPRAZOLE 40 MG TABLET PO SCH (06:10)
[2024-10-24] MEDS: allopurinoL 100 MG TABLET PO SCH (08:26)
[2024-10-24] MEDS: diltiaZEM CD 120 MG CAPSULE PO SCH (08:28)
--- NOTE | 2024-10-24 11:30 | Discharge Summary ---
Discharge Summary Admit Date: 10/23/24 Discharge Date: 10/24/24 Discharging Provider: Dr. Nathalie Velasquez Primary Care Provider: Dr. Ketty Medrano Code Status: Attempt Resuscitation Discharge Facility Name: Home, self care DIAGNOSES Admission Diagnoses: Hepatic encephalopathy Hyperammonemia Heart failure with preserved ejection fraction Acute nontraumatic kidney injury Paroxysmal atrial fibrillation Metabolic dysfunction associate steatohepatitis Hypertension Hypothyroidism Discharge Diagnoses with Status of Each Condition: Hepatic encephalopathyresolved. Hyperammonemiaresolved. Continue lactulose 30 mg 3 times daily. Advised to follow-up with cis coordinator, may be a good idea to start rifaximin. Heart failure with preserved ejection fractionpatient is well compensated at this time. She did have an GARLAND at admission. I advised her to restart her torsemide. Hold her spironolactone at this time, until recheck and follow-up with sap hana developer. Acute kidney injurylikely due to overdiuresis as well as GI losses. Lasix and torsemide held while she was here. Advised to continue torsemide on discharge, and spironolactone when given the okay by nephrology. Paroxysmal atrial fibrillationcontinue home diltiazem. Not on anticoagulation due to history of GI bleeds and known esophageal varices. Consider Watchman device. MASHcontinue follow-up with cis coordinator. Continue lactulose. Hypertensioncontinue diltiazem. Hypothyroidismcontinue levothyroxine. HPI History of Present Illness: Patient is a 64-year-old female with a history of Crews who presents with confusion, altered mentation. She does not recall the events of yesterday, but states that she "felt sick." When asked to elaborate, she states that she was confused. She denies any fevers, chills, abdominal pain, diarrhea. She does think that she missed a few doses of her lactulose. She denies any dysuria, urinary incontinence, urinary urgency. She does not feel like she is holding onto any water at this time. She is unsure if she has followed up with her cis coordinator or sap hana developer recently. She is alert and oriented x 4, but at times slow to respond. In the ED, she was vitally stable. Her blood pressure was 127 or 89, she is satting 99% on room air, respiratory rate was 20, heart rate was 78, and she was afebrile. Lab work was reviewedher white count was within normal limits. Her creatinine initially was 2.2, and it improved to 1.7. Appears her baseline is anywhere between 1-1.7. Her glucose was slightly elevated at 127-123. Her uric acid was within normal limits. Her bilirubin was slightly elevated at 1.1. Her AST was 65, which is around her baseline. Her ammonia was elevated at 229, and improved to 100 with 1 dose of lactulose. Her lipase was within normal limits. Her TSH was also checked, and it was 1.38. UA was negative for any acute infection. Head CT was completed which showed no acute pathology. Patient was admitted for acute metabolic encephalopathy. CONSULTS | PROCEDURES Consultations: - Procedures: Head CT HOSPITAL COURSE Hospital Course: Patient is a 64-year-old female with a history of metabolic associated steatohepatitis who presented for lethargy, confusion. She was found to have an elevated ammonia level at around 200. Prior to admission, states that she ate some pork, and then had a few episodes of nausea, and emesis following that. She took her lactulose right before this. She had worsening lethargy, confusion, and her ammonia was in the 200s when she first got here. She was given lactulose, and slowly started to wake up. She is now back at her baseline mentation. Her spironolactone and torsemide were held and her acute kidney injury that was present on admission, also resolved. She did have a one-time fever of 100.4. However, she has no cough, no chills, no abnormal rash, no abdominal pain, so she was advised to just follow-up closely and take it easy the next few days. She has a follow-up appointment with her primary care provider and sap hana developer in the next few weeks. As such, she is deemed stable for discharge. ALLERGIES Allergies Allergy/AdvReac Type Severity Reaction Status Date / Time amlodipine Allergy Edema Verified 08/17/24 15:37 lisinopril Allergy Unknown Verified 08/17/24 15:37 atenolol AdvReac Rash Verified 08/17/24 15:37 metoprolol AdvReac foot Verified 08/17/24 15:37 swelling MEDICATIONS Ambulatory Orders Medication Instructions Recorded Confirmed Handicap [place] #2 ea 04/23/24 09/06/24 lactulose 10 gram/15 mL oral 30 ml PO TID #946 mL 02/0610/23/24 solution spironolactone 100 mg tablet 100 mg PO QAM #90 tabs 10/23/24 Held on 10/24/24. Instructions: Resume on 11/05/24. Please hold until you follow up with your PCP. torsemide 20 mg tablet (Soaanz) 20 mg PO QDAY #90 tabs 04/23/24 10/23/24 diltiazem HCl 120 mg capsule,24 120 mg PO DAILY 10/23/24 hr,extended release allopurinol 100 mg tablet 200 mg PO QDAY 09/06/2410/14 levothyroxine 75 mcg capsule 75 mcg PO QAM #90 caps 10/23/24 pantoprazole 40 mg tablet,delayed 40 mg PO QDAY 10/23/24 release PHYSICAL EXAM AT DISCHARGE Vital Signs: Vital Signs x48h Temp Pulse Resp BP Pulse Ox 10/24/24 11:40 99.3 F 91 20 123/64 97 10/24/24 07:20 99.3 F 81 12 125/68 94 General Appearance: positive No acute distress and Alert; negative Anxious LABS 10/24/24 04:52 10/24/24 04:52 Discharge Plan Discharge Patient Disposition: Home, Self Care Condition: Stable Prescriptions: Continued levothyroxine 75 mcg capsule 75 mcg PO QAM Qty: 90 3RF diltiazem HCl 120 mg capsule,extended release 24 hr 120 mg PO DAILY allopurinol 100 mg tablet 200 mg PO QDAY (DME) Handicap Placard Unit See Rx Instructions .MEDSUPPLY Qty: 2 0RF Rx Instructions: Permanent Disabled Parking Permit. Cannot walk more than 200 feet without stopping to rest. lactulose 10 gram/15 mL solution 30 ml PO TID Qty: 946 12RF torsemide [Soaanz] 20 mg tablet 20 mg PO QDAY Qty: 90 1RF pantoprazole 40 mg tablet,delayed release (DR/EC) 40 mg PO QDAY Patient Comments: per gastro Held spironolactone 100 mg tablet 100 mg PO QAM Qty: 90 1RF Hold Instructions: Resume on 05/23/25. Please hold until you follow up with your PCP. Diet: Soft Health Concerns: You came in because you were lethargic and confused. This is likely due to a high ammonia level and your liver disease. Based on what you guys told me, this likely happened because you are throwing up from possible food poisoning, and you may have thrown up the lactulose you took. It looks like you are back down to your baseline. You are feeling better as well, which I am glad to hear. Your kidney numbers were a little bit worse when you first got here, but that now they are back down to your normal. Like we talked about, these of the things I want you to follow-up on: 1. Please continue to take your torsemide. Please hold your spironolactone until you see your primary care provider or your sap hana developer at the end of the month and they recheck your kidney levels and tell you it is safe to do so. 2. Please follow-up with your cis coordinator. They may recommend an additional medication called rifaximin to help keep your ammonia levels down. In the meantime, please continue take your lactulose 30 mg 3 times a day. 3. Continue close follow-up with all your providers including your primary care provider, your sap hana developer, as well as your cis coordinator. We are glad you are feeling better, thanks for allowing us to take care of you. Print Language: Cambodian Patient Instructions: Ammonia Stand Alone Forms: PCP List Follow-up Care: Ketty Medrano MD [Primary Care Provider] -
[2024-10-24 11:45] VITALS: BP 123/64; O2SAT 97
== END 2024-10-24 14:51 | disposition home or self-care (01) ==
LOC: MS2 23:30 → ED 23:30 → MS2 10-23 09:11
PROVIDERS: ADMIT Internal Medicine; ATTEND Internal Medicine
DX: I48.0 Paroxysmal atrial fibrillation; I50.32 Chronic diastolic (congestive) heart failure; I11.0 Hypertensive heart disease with heart failure; K76.7 Hepatorenal syndrome; E03.9 Hypothyroidism, unspecified; K75.81 Nonalcoholic steatohepatitis (NASH); N17.9 Acute kidney failure, unspecified; E72.20 Disorder of urea cycle metabolism, unspecified; K76.82 Hepatic encephalopathy